=== PATIENT | male | born 1945 | race Caucasian/White ===

== ENCOUNTER 2020-01-05 16:50 | Inpatient (IN) | payer MEDICARE, BC ==
[2020-01-05] MEDS ORDERED: Sodium Chloride 0.9% 10 ML Syringe FLUSH PRN (18:03)
--- NOTE | 2020-01-05 18:09 | EDM.PDOC ---
ED HPI GENERAL MEDICAL PROBLEM - General Chief Complaint: Respiratory Problem Stated Complaint: PENDING COVID LOW O2 Time Seen by Provider: 01/05/20 17:37 Source of Information: Reports: Patient, RN Notes Reviewed History Limitations: Reports: No Limitations - History of Present Illness INITIAL COMMENTS - FREE TEXT/NARRATIVE: Patient is a 74-year-old male who presents to the ED for the evaluation of his ongoing Covid-like symptoms. Patient notes he has been sick since last week 12/29/2019. He notes that he had low oxygen saturations at home 85 to 89% on room air with no activity. O2 sats during his time here has been in the upper 80s to low 90s, roughly 88 to 91% on room air. He does have at times O2 sats of 93% when he is at rest. He was tested for COVID-19 on , but has not received his results yet. He states that his did had Covid a few weeks ago, roughly 3 weeks ago. 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 He is not complaining of fevers, but he is complaining of chills, no cough, no nausea or vomiting or diarrhea, but he has had no appetite. He states that he gets short of breath with very little exertion. - Related Data Allergies Allergy/AdvReac Type Severity Reaction Status Date / Time penicillin G Allergy Difficulty Verified 01/05/20 17:26 Breathing Home Meds: Home Meds Carbidopa/Levodopa [Carbidopa-Levodopa 25-100] 1 tab PO DAILY 03/20/14 [History] Esomeprazole Magnesium [Nexium] 1 cap PO DAILY 03/20/14 [History] Hydrocodone/Acetaminophen [Hydrocodone-Acetamin 10-325 mg] 1 - 2 tab PO Q6H PRN 03/20/14 [History] Pregabalin [Lyrica] 1 cap PO QID 03/20/14 [History] Tamsulosin HCl 1 cap PO DAILY 03/20/14 [History] Timolol Maleate 1 drop EYEBOTH BID 03/20/14 [History] Past Medical History - Past Surgical History Neurological Surgical History: Reports: C-Spine, Other (See Below) Other Neurological Surgeries/Procedures: tail bone removed Musculoskeletal Surgical History: Reports: Knee Replacement, Shoulder Replacement, Other (See Below) Other Musculoskeletal Surgeries/Procedures:: ankle replacement, multiple broken bones Social & Family History - Tobacco Use Tobacco Use Status *Q: Former Tobacco User Used Tobacco, but Quit: Yes Month/Year Tobacco Last Used: 1999 - Caffeine Use Caffeine Use: Reports: Coffee - Recreational Drug Use Recreational Drug Use: No ED ROS GENERAL - Review of Systems Review Of Systems: Comprehensive ROS is negative, except as noted in HPI. ED EXAM, GENERAL - Physical Exam Exam: See Below Exam Limited By: No Limitations General Appearance: Alert, WD/WN, No Apparent Distress Respiratory/Chest: No Respiratory Distress, Lungs Clear, Normal Breath Sounds, No Accessory Muscle Use, Chest Non-Tender Cardiovascular: Normal Peripheral Pulses, Regular Rate, Rhythm, No Edema, No Murmur Peripheral Pulses: 2+: Radial (L), Radial (R) Extremities: Normal Inspection, Normal Capillary Refill Neurological: Alert, Oriented, Normal Cognition, No Motor/Sensory Deficits Psychiatric: Normal Affect, Normal Mood Skin Exam: Warm, Dry, Intact, Normal Color, No Rash #1 Interpretation EKG Date: 01/05/20 Time: 18:19 Rhythm: NSR Rate (Beats/Min): 56 [place]: LAD-Left [place] Deviation (-26 ) P-Wave: Present QRS: Normal ST-T: Normal QT: Normal EKG Interpretation Comments: No obvious ischemia or acute ST changes noted, reviewed by myself and Dr. Thompson. Course - Vital Signs Last Recorded V/S: Last Vital Signs Temp 98.8 F 01/05/20 17:21 Pulse 68 01/05/20 17:21 Resp 18 01/05/20 17:21 BP 158/87 H 01/05/20 17:21 Pulse Ox 93 L 01/05/20 17:21 - Orders/Labs/Meds Orders: Active Orders 24 hr Category Date Time Status EKG Documentation Completion [RC] STAT Care 01/05/20 18:03 Ordered Oxygen Therapy, ED [RC] ASDIRECTED Care 01/05/20 20:38 Ordered Peripheral IV Care [RC] . DIRECTED Care 01/05/20 18:03 Ordered Chest 1V Frontal [CR] Stat Exams 01/05/20 18:02 Ordered CULTURE BLOOD [BC] Stat Lab 01/05/20 18:03 Ordered CULTURE BLOOD [BC] Stat Lab 01/05/20 18:03 Ordered Sodium Chloride 0.9% [Saline Flush] Med 01/05/20 18:03 Ordered 10 ml FLUSH ASDIRECTED PRN Blood Culture x2 Reflex Set [OM.PC] Stat Oth 01/05/20 18:03 Ordered Isolation [COMM] Routine Oth 01/05/20 18:03 Ordered Peripheral IV Insertion Adult [OM.PC] Routine Oth 01/05/20 18:03 Ordered Medication Orders Sodium Chloride (Saline Flush) 10 ml FLUSH ASDIRECTED PRN PRN Reason: Keep Vein Open Last Admin: 01/05/20 18:22 Dose: 10 ml Documented by: NIKKI Labs: Laboratory Tests 01/05/20 01/05/20 01/05/20 Range/Units 18:20 18:30 18:30 WBC 4.51 (4.23-9.07) K/mm3 RBC 5.18 (4.63-6.08) M/mm3 Hgb 15.2 (13.7-17.5) gm/dl Hct 46.0 (40.1-51.0) % MCV 88.8 (79.0-92.2) fl MCH 29.3 (25.7-32.2) pg MCHC 33.0 (32.2-35.5) g/dl RDW Std Deviation 48.1 H (35.1-43.9) fL Plt Count 200 (163-337) K/mm3 MPV 9.8 (9.4-12.3) fl Neutrophils % (Manual) 81 H (40-60) % Band Neutrophils % 2 (0-10) % Lymphocytes % (Manual) 14 L (20-40) % Atypical Lymphs % 0 % Monocytes % (Manual) 3 (2-10) % Eosinophils % (Manual) 0 L (0.8-7.0) % Basophils % (Manual) 0 L (0.2-1.2) Platelet Estimate Adequate RBC Morph Comment Normal PT (9.7-12.0) SECONDS INR APTT (21.7-31.4) SECONDS D-Dimer, Quantitative (0.19-0.50) mg/L Puncture Site Rt radial ABG pH 7.49 H (7.35-7.45) ABG pCO2 25.8 L (35.0-45.0) mmHg ABG pO2 60.0 L (80.0-100.0) mmHg ABG HCO3 19.3 L (22.0-26.0) meq/L ABG O2 Saturation 91.5 L (96.0-97.0) % ABG Base Excess -2.2 L (-2-2.0) Tai Test Positive A-a Gradient 57 mmHg O2 Delivery Device Room air Oxygen Flow Rate 0.0 FiO2 21.00 (21.00-100.00) % Sodium (136-145) mEq/L Potassium (3.5-5.1) mEq/L Chloride (98-107) mEq/L Carbon Dioxide (21-32) mEq/L Anion Gap (5-15) BUN (7-18) mg/dL Creatinine (0.7-1.3) mg/dL Est Cr Clr Drug Dosing mL/min Estimated GFR (MDRD) (>60) mL/min BUN/Creatinine Ratio (14-18) Glucose (83-115) mg/dL Lactic Acid (0.4-2.0) mmol/L Calcium (8.5-10.1) mg/dL Magnesium (1.8-2.4) mg/dl Ferritin (26-388) ng/ml Total Bilirubin (0.2-1.0) mg/dL AST (15-37) U/L ALT (16-63) U/L Alkaline Phosphatase (46-116) U/L Lactate Dehydrogenase (85-227) U/L Troponin I (0.00-0.056) ng/mL C-Reactive Protein 7.9 H* (<1.0) mg/dL NT-Pro-B Natriuret Pep (0-450) pg/mL Total Protein (6.4-8.2) g/dl Albumin (3.4-5.0) g/dl Globulin gm/dL Albumin/Globulin Ratio (1-2) SARS-CoV-2 RNA (ANNIE) (NEGATIVE) 01/05/20 01/05/20 01/05/20 Range/Units 18:30 18:30 18:30 WBC (4.23-9.07) K/mm3 RBC (4.63-6.08) M/mm3 Hgb (13.7-17.5) gm/dl Hct (40.1-51.0) % MCV (79.0-92.2) fl MCH (25.7-32.2) pg MCHC (32.2-35.5) g/dl RDW Std Deviation (35.1-43.9) fL Plt Count (163-337) K/mm3 MPV (9.4-12.3) fl Neutrophils % (Manual) (40-60) % Band Neutrophils % (0-10) % Lymphocytes % (Manual) (20-40) % Atypical Lymphs % % Monocytes % (Manual) (2-10) % Eosinophils % (Manual) (0.8-7.0) % Basophils % (Manual) (0.2-1.2) Platelet Estimate RBC Morph Comment PT 10.7 (9.7-12.0) SECONDS INR 1.00 APTT 30.3 (21.7-31.4) SECONDS D-Dimer, Quantitative 0.36 (0.19-0.50) mg/L Puncture Site ABG pH (7.35-7.45) ABG pCO2 (35.0-45.0) mmHg ABG pO2 (80.0-100.0) mmHg ABG HCO3 (22.0-26.0) meq/L ABG O2 Saturation (96.0-97.0) % ABG Base Excess (-2-2.0) Tai Test A-a Gradient mmHg O2 Delivery Device Oxygen Flow Rate FiO2 (21.00-100.00) % Sodium 137 (136-145) mEq/L Potassium 4.0 (3.5-5.1) mEq/L Chloride 102 (98-107) mEq/L Carbon Dioxide 22 (21-32) mEq/L Anion Gap 17.0 H (5-15) BUN 26 H (7-18) mg/dL Creatinine 1.4 H (0.7-1.3) mg/dL Est Cr Clr Drug Dosing 55.11 mL/min Estimated GFR (MDRD) 49 (>60) mL/min BUN/Creatinine Ratio 18.6 H (14-18) Glucose 105 (83-115) mg/dL Lactic Acid (0.4-2.0) mmol/L Calcium 8.4 L (8.5-10.1) mg/dL Magnesium 2.1 (1.8-2.4) mg/dl Ferritin (26-388) ng/ml Total Bilirubin 0.6 (0.2-1.0) mg/dL AST 21 (15-37) U/L ALT 22 (16-63) U/L Alkaline Phosphatase 51 (46-116) U/L Lactate Dehydrogenase 258 H (85-227) U/L Troponin I < 0.017 (0.00-0.056) ng/mL C-Reactive Protein (<1.0) mg/dL NT-Pro-B Natriuret Pep 203 (0-450) pg/mL Total Protein 7.6 (6.4-8.2) g/dl Albumin 3.5 (3.4-5.0) g/dl Globulin 4.1 gm/dL Albumin/Globulin Ratio 0.9 L (1-2) SARS-CoV-2 RNA (ANNIE) (NEGATIVE) 01/05/20 01/05/20 01/05/20 Range/Units 18:30 18:30 19:21 WBC (4.23-9.07) K/mm3 RBC (4.63-6.08) M/mm3 Hgb (13.7-17.5) gm/dl Hct (40.1-51.0) % MCV (79.0-92.2) fl MCH (25.7-32.2) pg MCHC (32.2-35.5) g/dl RDW Std Deviation (35.1-43.9) fL Plt Count (163-337) K/mm3 MPV (9.4-12.3) fl Neutrophils % (Manual) (40-60) % Band Neutrophils % (0-10) % Lymphocytes % (Manual) (20-40) % Atypical Lymphs % % Monocytes % (Manual) (2-10) % Eosinophils % (Manual) (0.8-7.0) % Basophils % (Manual) (0.2-1.2) Platelet Estimate RBC Morph Comment PT (9.7-12.0) SECONDS INR APTT (21.7-31.4) SECONDS D-Dimer, Quantitative (0.19-0.50) mg/L Puncture Site ABG pH (7.35-7.45) ABG pCO2 (35.0-45.0) mmHg ABG pO2 (80.0-100.0) mmHg ABG HCO3 (22.0-26.0) meq/L ABG O2 Saturation (96.0-97.0) % ABG Base Excess (-2-2.0) Tai Test A-a Gradient mmHg O2 Delivery Device Oxygen Flow Rate FiO2 (21.00-100.00) % Sodium (136-145) mEq/L Potassium (3.5-5.1) mEq/L Chloride (98-107) mEq/L Carbon Dioxide (21-32) mEq/L Anion Gap (5-15) BUN (7-18) mg/dL Creatinine (0.7-1.3) mg/dL Est Cr Clr Drug Dosing mL/min Estimated GFR (MDRD) (>60) mL/min BUN/Creatinine Ratio (14-18) Glucose (83-115) mg/dL Lactic Acid 1.2 (0.4-2.0) mmol/L Calcium (8.5-10.1) mg/dL Magnesium (1.8-2.4) mg/dl Ferritin 699 H (26-388) ng/ml Total Bilirubin (0.2-1.0) mg/dL AST (15-37) U/L ALT (16-63) U/L Alkaline Phosphatase (46-116) U/L Lactate Dehydrogenase (85-227) U/L Troponin I (0.00-0.056) ng/mL C-Reactive Protein (<1.0) mg/dL NT-Pro-B Natriuret Pep (0-450) pg/mL Total Protein (6.4-8.2) g/dl Albumin (3.4-5.0) g/dl Globulin gm/dL Albumin/Globulin Ratio (1-2) SARS-CoV-2 RNA (ANNIE) Positive H (NEGATIVE) Meds: Medications Generic Name Dose Route Start Last Admin Trade Name Freq PRN Reason Stop Dose Admin Sodium Chloride 10 ml 01/05/20 18:03 01/05/20 18:22 Saline Flush FLUSH 10 ml ASDIRECTED PRN Administration Keep Vein Open - Re-Assessments/Exams Free Text/Narrative Re-Assessment/Exam: 01/05/20 18:27 Patient presents to the ED for the evaluation of his ongoing COVID-19 symptoms. Have ordered multitude of labs, Covid testing, chest x-ray and EKG for further evaluation. Due to the patient's low O2 sats at rest I do believe he would benefit from hospitalization at this time. 01/05/20 19:25 The patient's labs have started to result, white blood cell count is 4.51, manual differential shows 81% neutrophils and 2 bands counted. D-dimer is within normal limits at 0.36, his blood gas does demonstrate a PO2 of 60 on room air. Lactic acid is within normal limits at 1.2. The rest of his labs are still pending at this time. The chest x-ray has been read, as possible peripheral pneumonitis or artifact. 01/05/20 20:41 The patient is COVID positive. Dr. Andrew does accept for admission. Departure - Departure Time of Disposition: 20:47 Disposition: Home, Self-Care 01 Condition: Good Clinical Impression: COVID-19, Hypoxia - Discharge Information Forms: ED Department Discharge Sepsis Event Note (ED) - Evaluation Sepsis Screening Result: No Definite Risk - Focused Exam Vital Signs: Vital Signs Temp Pulse Resp BP Pulse Ox 01/05/20 17:21 98.8 F 68 18 158/87 H 93 L - My Orders Last 24 Hours: My Active Orders 01/05/20 18:02 Chest 1V Frontal [CR] Stat 01/05/20 18:03 EKG Documentation Completion [RC] STAT Peripheral IV Care [RC] . DIRECTED CULTURE BLOOD [BC] Stat CULTURE BLOOD [BC] Stat Sodium Chloride 0.9% [Saline Flush] 10 ml FLUSH ASDIRECTED PRN Blood Culture x2 Reflex Set [OM.PC] Stat Isolation [COMM] Routine Peripheral IV Insertion Adult [OM.PC] Routine 01/05/20 20:38 Oxygen Therapy, ED [RC] ASDIRECTED - Assessment/Plan Last 24 Hours: My Active Orders 01/05/20 18:02 Chest 1V Frontal [CR] Stat 01/05/20 18:03 EKG Documentation Completion [RC] STAT Peripheral IV Care [RC] . DIRECTED CULTURE BLOOD [BC] Stat CULTURE BLOOD [BC] Stat Sodium Chloride 0.9% [Saline Flush] 10 ml FLUSH ASDIRECTED PRN Blood Culture x2 Reflex Set [OM.PC] Stat Isolation [COMM] Routine Peripheral IV Insertion Adult [OM.PC] Routine 01/05/20 20:38 Oxygen Therapy, ED [RC] ASDIRECTED
[2020-01-05] MEDS ORDERED: Ondansetron 4 MG/2 ML SDV IV PRN (22:41)
--- NOTE | 2020-01-05 22:51 | PCM.HP.2 ---
H&P History of Present Illness - General Date of Service: 01/05/20 Admit Problem/Dx: Admission Diagnosis/Problem Admission Diagnosis/Problem Hypoxia - History of Present Illness Initial Comments - Free Text/Narative: 74-year-old male with history of hypertension presents to the emergency department with chills and shortness of breath on exertion. Patient started getting sick on 12/29/2019 and had Covid testing at the clinic on , 01/03/2020. His did have COVID-19 approximately 3 weeks ago. At the clinic patient was placed on dexamethasone and amoxicillin. He has a severe allergy to penicillin. At home his oxygen saturations today were between 85 and 89% and in the emergency department he was between 88 and 91% on room air. Denies any cough. He does not have any abdominal symptoms including nausea, vomiting, abdominal pain, or diarrhea. He does not have any appetite. Patient is a former smoker who quit in 1999. In the emergency department he had a normal white count at 7.51 with C-reactive protein of 7.9 and a D-dimer of 0.36. Blood gas demonstrated a pH of 7.49, PCO2 25.8, and PO2 of 60.0. Bicarb 19.3. This was on room air. He does show some renal insufficiency with an estimated GFR of 49 and a creatinine of 1.4. headache Pain Score (Numeric/FACES): 8 - Related Data Allergies/Adverse Reactions: Allergies Allergy/AdvReac Type Severity Reaction Status Date / Time penicillin G Allergy Difficulty Verified 01/05/20 22:21 Breathing Home Medications: Home Meds Aspirin [Adult Low Dose Aspirin EC] 81 mg PO DAILY 01/05/20 [History] Azithromycin [Zithromax] 250 mg PO DAILY 01/05/20 [History] Latanoprost [Xalatan 0.005% Ophth Soln] 1 drop EYEBOTH DAILY 01/05/20 [History] Losartan [Cozaar] 50 mg PO DAILY 01/05/20 [History] Montelukast [Singulair] 10 mg PO DAILY 01/05/20 [History] Pregabalin [Lyrica] 100 mg PO ASDIRECTED 01/05/20 [History] Tamsulosin HCl 0.4 mg PO DAILY 01/05/20 [History] amLODIPine Besylate [Amlodipine Besylate] 10 mg PO DAILY 01/05/20 [History] dexAMETHasone [Dexamethasone] 2 mg PO BEDTIME 01/05/20 [History] dexAMETHasone [Dexamethasone] 4 mg PO DAILY 01/05/20 [History] Past Medical History HEENT History: Reports: Cataract, Hard of Hearing, Other (See Below) Other HEENT History: Wears glasses, [employer] [place] with no aides, full upper denture and lower partial. Respiratory History: Reports: Sleep Apnea Other Respiratory History: wears cpap at home Musculoskeletal History: Reports: Arthritis, Back Pain, Chronic Other Musculoskeletal History: Broke back and neck. L1, L2 and L3 crushed 3 and 4 between shoulder blades and T1 smashed. Tailbone was removed. Neurological History: Reports: Concussion - Infectious Disease History Infectious Disease History: Reports: Influenza, Measles, Novel Coronavirus - Past Surgical History HEENT Surgical History: Reports: Cataract Surgery Respiratory Surgical History: Reports: None Neurological Surgical History: Reports: C-Spine, Other (See Below) Other Neurological Surgeries/Procedures: tail bone removed Musculoskeletal Surgical History: Reports: Knee Replacement, Shoulder Replacement, Other (See Below) Other Musculoskeletal Surgeries/Procedures:: ankle replacement, multiple broken bones Social & Family History - Family History Family Medical History: No Pertinent Family History - Tobacco Use Tobacco Use Status *Q: Former Tobacco User Used Tobacco, but Quit: Yes Month/Year Tobacco Last Used: 1999 - Caffeine Use Caffeine Use: Reports: Coffee - Recreational Drug Use Recreational Drug Use: No H&P Review of Systems - Review of Systems: Review Of Systems: Comprehensive ROS is negative, except as noted in HPI. Exam - Exam Exam: See Below - Vital Signs Vital Signs: Last Vital Signs Temp 98.8 F 01/05/20 17:21 Pulse 68 01/05/20 17:21 Resp 18 01/05/20 17:21 BP 158/87 H 01/05/20 17:21 Pulse Ox 91 L 01/05/20 21:12 Weight: 238 lb - Exam Quality Assessment: Supplemental Oxygen General: Alert, Oriented, 4 HEENT: Conjunctiva Clear, Hearing Intact, Mucosa Moist & [employer], Normal Nasal Septum Neck: Supple, Trachea Midline, 2 Lungs: Normal Respiratory Effort, Rales (Bibasilar) Cardiovascular: Regular Rate, Regular Rhythm GI/Abdominal Exam: Normal Bowel Sounds, Soft, Non-Tender, No Organomegaly, No Distention, No Abnormal Bruit, No Mass Extremities: Normal Inspection, Normal Range of Motion, Non-Tender, No Pedal Edema, Normal Capillary Refill Peripheral Pulses: 2+: Posterior Tibial (L), Posterior Tibial (R), Dorsalis Pedis (L), Dorsalis Pedis (R) Skin: Warm, Dry, Intact Neuro Extensive - Motor, Sensory, Reflexes: CN II-XII Intact Psychiatric: Alert, Normal Affect, Normal Mood - Patient Data Lab Results Last 24 hrs: Laboratory Results - last 24 hr 01/05/20 01/05/20 01/05/20 Range/Units 18:20 18:30 18:30 WBC 4.51 (4.23-9.07) K/mm3 RBC 5.18 (4.63-6.08) M/mm3 Hgb 15.2 (13.7-17.5) gm/dl Hct 46.0 (40.1-51.0) % MCV 88.8 (79.0-92.2) fl MCH 29.3 (25.7-32.2) pg MCHC 33.0 (32.2-35.5) g/dl RDW Std Deviation 48.1 H (35.1-43.9) fL Plt Count 200 (163-337) K/mm3 MPV 9.8 (9.4-12.3) fl Neutrophils % (Manual) 81 H (40-60) % Band Neutrophils % 2 (0-10) % Lymphocytes % (Manual) 14 L (20-40) % Atypical Lymphs % 0 % Monocytes % (Manual) 3 (2-10) % Eosinophils % (Manual) 0 L (0.8-7.0) % Basophils % (Manual) 0 L (0.2-1.2) Platelet Estimate Adequate RBC Morph Comment Normal PT (9.7-12.0) SECONDS INR APTT (21.7-31.4) SECONDS D-Dimer, Quantitative (0.19-0.50) mg/L Puncture Site Rt radial ABG pH 7.49 H (7.35-7.45) ABG pCO2 25.8 L (35.0-45.0) mmHg ABG pO2 60.0 L (80.0-100.0) mmHg ABG HCO3 19.3 L (22.0-26.0) meq/L ABG O2 Saturation 91.5 L (96.0-97.0) % ABG Base Excess -2.2 L (-2-2.0) Tai Test Positive A-a Gradient 57 mmHg O2 Delivery Device Room air Oxygen Flow Rate 0.0 FiO2 21.00 (21.00-100.00) % Sodium (136-145) mEq/L Potassium (3.5-5.1) mEq/L Chloride (98-107) mEq/L Carbon Dioxide (21-32) mEq/L Anion Gap (5-15) BUN (7-18) mg/dL Creatinine (0.7-1.3) mg/dL Est Cr Clr Drug Dosing mL/min Estimated GFR (MDRD) (>60) mL/min BUN/Creatinine Ratio (14-18) Glucose (83-115) mg/dL Lactic Acid (0.4-2.0) mmol/L Calcium (8.5-10.1) mg/dL Magnesium (1.8-2.4) mg/dl Ferritin (26-388) ng/ml Total Bilirubin (0.2-1.0) mg/dL AST (15-37) U/L ALT (16-63) U/L Alkaline Phosphatase (46-116) U/L Lactate Dehydrogenase (85-227) U/L Troponin I (0.00-0.056) ng/mL C-Reactive Protein 7.9 H* (<1.0) mg/dL NT-Pro-B Natriuret Pep (0-450) pg/mL Total Protein (6.4-8.2) g/dl Albumin (3.4-5.0) g/dl Globulin gm/dL Albumin/Globulin Ratio (1-2) SARS-CoV-2 RNA (ANNIE) (NEGATIVE) 01/05/20 01/05/20 01/05/20 Range/Units 18:30 18:30 18:30 WBC (4.23-9.07) K/mm3 RBC (4.63-6.08) M/mm3 Hgb (13.7-17.5) gm/dl Hct (40.1-51.0) % MCV (79.0-92.2) fl MCH (25.7-32.2) pg MCHC (32.2-35.5) g/dl RDW Std Deviation (35.1-43.9) fL Plt Count (163-337) K/mm3 MPV (9.4-12.3) fl Neutrophils % (Manual) (40-60) % Band Neutrophils % (0-10) % Lymphocytes % (Manual) (20-40) % Atypical Lymphs % % Monocytes % (Manual) (2-10) % Eosinophils % (Manual) (0.8-7.0) % Basophils % (Manual) (0.2-1.2) Platelet Estimate RBC Morph Comment PT 10.7 (9.7-12.0) SECONDS INR 1.00 APTT 30.3 (21.7-31.4) SECONDS D-Dimer, Quantitative 0.36 (0.19-0.50) mg/L Puncture Site ABG pH (7.35-7.45) ABG pCO2 (35.0-45.0) mmHg ABG pO2 (80.0-100.0) mmHg ABG HCO3 (22.0-26.0) meq/L ABG O2 Saturation (96.0-97.0) % ABG Base Excess (-2-2.0) Tai Test A-a Gradient mmHg O2 Delivery Device Oxygen Flow Rate FiO2 (21.00-100.00) % Sodium 137 (136-145) mEq/L Potassium 4.0 (3.5-5.1) mEq/L Chloride 102 (98-107) mEq/L Carbon Dioxide 22 (21-32) mEq/L Anion Gap 17.0 H (5-15) BUN 26 H (7-18) mg/dL Creatinine 1.4 H (0.7-1.3) mg/dL Est Cr Clr Drug Dosing 55.11 mL/min Estimated GFR (MDRD) 49 (>60) mL/min BUN/Creatinine Ratio 18.6 H (14-18) Glucose 105 (83-115) mg/dL Lactic Acid (0.4-2.0) mmol/L Calcium 8.4 L (8.5-10.1) mg/dL Magnesium 2.1 (1.8-2.4) mg/dl Ferritin (26-388) ng/ml Total Bilirubin 0.6 (0.2-1.0) mg/dL AST 21 (15-37) U/L ALT 22 (16-63) U/L Alkaline Phosphatase 51 (46-116) U/L Lactate Dehydrogenase 258 H (85-227) U/L Troponin I < 0.017 (0.00-0.056) ng/mL C-Reactive Protein (<1.0) mg/dL NT-Pro-B Natriuret Pep 203 (0-450) pg/mL Total Protein 7.6 (6.4-8.2) g/dl Albumin 3.5 (3.4-5.0) g/dl Globulin 4.1 gm/dL Albumin/Globulin Ratio 0.9 L (1-2) SARS-CoV-2 RNA (ANNIE) (NEGATIVE) 01/05/20 01/05/20 01/05/20 Range/Units 18:30 18:30 19:21 WBC (4.23-9.07) K/mm3 RBC (4.63-6.08) M/mm3 Hgb (13.7-17.5) gm/dl Hct (40.1-51.0) % MCV (79.0-92.2) fl MCH (25.7-32.2) pg MCHC (32.2-35.5) g/dl RDW Std Deviation (35.1-43.9) fL Plt Count (163-337) K/mm3 MPV (9.4-12.3) fl Neutrophils % (Manual) (40-60) % Band Neutrophils % (0-10) % Lymphocytes % (Manual) (20-40) % Atypical Lymphs % % Monocytes % (Manual) (2-10) % Eosinophils % (Manual) (0.8-7.0) % Basophils % (Manual) (0.2-1.2) Platelet Estimate RBC Morph Comment PT (9.7-12.0) SECONDS INR APTT (21.7-31.4) SECONDS D-Dimer, Quantitative (0.19-0.50) mg/L Puncture Site ABG pH (7.35-7.45) ABG pCO2 (35.0-45.0) mmHg ABG pO2 (80.0-100.0) mmHg ABG HCO3 (22.0-26.0) meq/L ABG O2 Saturation (96.0-97.0) % ABG Base Excess (-2-2.0) Tai Test A-a Gradient mmHg O2 Delivery Device Oxygen Flow Rate FiO2 (21.00-100.00) % Sodium (136-145) mEq/L Potassium (3.5-5.1) mEq/L Chloride (98-107) mEq/L Carbon Dioxide (21-32) mEq/L Anion Gap (5-15) BUN (7-18) mg/dL Creatinine (0.7-1.3) mg/dL Est Cr Clr Drug Dosing mL/min Estimated GFR (MDRD) (>60) mL/min BUN/Creatinine Ratio (14-18) Glucose (83-115) mg/dL Lactic Acid 1.2 (0.4-2.0) mmol/L Calcium (8.5-10.1) mg/dL Magnesium (1.8-2.4) mg/dl Ferritin 699 H (26-388) ng/ml Total Bilirubin (0.2-1.0) mg/dL AST (15-37) U/L ALT (16-63) U/L Alkaline Phosphatase (46-116) U/L Lactate Dehydrogenase (85-227) U/L Troponin I (0.00-0.056) ng/mL C-Reactive Protein (<1.0) mg/dL NT-Pro-B Natriuret Pep (0-450) pg/mL Total Protein (6.4-8.2) g/dl Albumin (3.4-5.0) g/dl Globulin gm/dL Albumin/Globulin Ratio (1-2) SARS-CoV-2 RNA (ANNIE) Positive H (NEGATIVE) Result Diagrams: 01/05/20 18:30 01/05/20 18:30 Sam Results Last 24 hrs: Microbiology 01/05/20 19:21 Influenza Type A Antigen Screen - Final Nasopharyngeal Swab NEGATIVE INFLUENZA A VIRUS AG REFERENCE RANGE: NEGATIVE Influenza Type B Antigen Screen - Final NEGATIVE INFLUENZA B VIRUS AG REFERENCE RANGE: NEGATIVE Imaging Impressions Last 24 hrs: Chest x-ray possible peripheral pneumonitis Sepsis Event Note - Evaluation Sepsis Screening Result: No Definite Risk - Focused Exam Vital Signs: Vital Signs Temp Pulse Resp BP Pulse Ox Pulse Ox 01/05/20 21:12 91 L 01/05/20 17:21 98.8 F 68 18 158/87 H 93 L - Problem List (1) Hypertension SNOMED Code(s): 86991806 ICD Code: I10 - ESSENTIAL (PRIMARY) HYPERTENSION Status: Acute Current Visit: Yes (2) COVID-19 SNOMED Code(s): 310078516 ICD Code: U07.1 - COVID-19 Status: Acute Current Visit: Yes (3) Hypoxia SNOMED Code(s): 236912155 ICD Code: R09.02 - HYPOXEMIA Status: Acute Current Visit: Yes Problem List Initiated/Reviewed/Updated: Yes Orders Last 24hrs: Active Orders 24 hr Category Date Time Status Admission Status [Patient Status] [ADT] Routine ADT 01/05/20 20:44 Active EKG Documentation Completion [RC] STAT Care 01/05/20 18:03 Active Oxygen Therapy [RC] PRN Care 01/05/20 22:42 Ordered Oxygen Therapy, ED [RC] ASDIRECTED Care 01/05/20 20:38 Active Peripheral IV Care [RC] . DIRECTED Care 01/05/20 18:03 Active Up ad [place] [RC] ASDIRECTED Care 01/05/20 22:41 Ordered VTE/DVT Education [RC] PER UNIT ROUTINE Care 01/05/20 22:42 Ordered Vital Signs [RC] Q4H Care 01/05/20 22:42 Ordered Regular Diet [DIET] Diet 01/06/20 Breakfast Ordered Chest 1V Frontal [CR] Stat Exams 01/05/20 18:02 Taken CULTURE BLOOD [BC] Stat Lab 01/05/20 18:30 Received CULTURE BLOOD [BC] Stat Lab 01/05/20 18:50 Received Acetaminophen [TylenoL] Med 01/05/20 22:41 Ordered 650 mg PO Q4H PRN Aspirin [Halfprin] Med 01/06/20 09:00 Ordered 81 mg PO DAILY Azithromycin Med 01/06/20 09:00 Ordered 250 mg PO DAILY Enoxaparin [Lovenox] Med 01/06/20 09:00 Ordered 40 mg SUBCUT DAILY Latanoprost [Xalatan 0.005% Ophth Soln] Med 01/05/20 23:00 Ordered 1 drop EYEBOTH DAILY Montelukast [Singulair] Med 01/06/20 09:00 Ordered 10 mg PO DAILY Ondansetron [Zofran] Med 01/05/20 22:41 Ordered 4 mg IV Q4H PRN Pregabalin Med 01/05/20 22:45 Ordered 100 mg PO ASDIRECTED Remdesivir (Eua) [Remdesivir (EUA)] 100 mg Med 01/06/20 22:45 Ordered Sodium Chloride 0.9% [Normal Saline] 100 ml IV Q24H Remdesivir (Eua) [Remdesivir (EUA)] 200 mg Med 01/05/20 22:41 Ordered Sodium Chloride 0.9% [Normal Saline] 250 ml IV ONETIME Sodium Chloride 0.9% [Saline Flush] Med 01/05/20 18:03 Active 10 ml FLUSH ASDIRECTED PRN Tamsulosin [Flomax] Med 01/06/20 09:00 Ordered 0.4 mg PO DAILY amLODIPine [Norvasc] Med 01/06/20 09:00 Ordered 10 mg PO DAILY dexAMETHasone Med 01/06/20 09:00 Ordered 6 mg PO DAILY Blood Culture x2 Reflex Set [OM.PC] Stat Oth 01/05/20 18:03 Ordered Isolation [COMM] Routine Oth 01/05/20 18:03 Ordered Peripheral IV Insertion Adult [OM.PC] Routine Oth 01/05/20 18:03 Ordered Resuscitation Status Routine Resus Stat 01/05/20 22:41 Ordered Medication Orders Acetaminophen (Tylenol) 650 mg PO Q4H PRN PRN Reason: Pain (Mild 1-3)/fever Amlodipine Besylate (Norvasc) 10 mg PO DAILY [facility] Aspirin (Halfprin) 81 mg PO DAILY [facility] Dexamethasone (Dexamethasone) 6 mg PO DAILY [facility] Stop: 01/12/20 09:01 Enoxaparin Sodium (Lovenox) 40 mg SUBCUT DAILY [facility] Remdesivir 200 mg/ Sodium (Chloride) 250 mls @ 250 mls/hr IV ONETIME ONE Stop: 01/05/20 22:42 Remdesivir 100 mg/ Sodium (Chloride) 100 mls @ 100 mls/hr IV Q24H [facility] Stop: 01/09/20 23:44 Latanoprost (Xalatan 0.005% Ophth Soln) ml EYEBOTH DAILY [facility] Montelukast Sodium (Singulair) 10 mg PO DAILY [facility] Non-Formulary Medication (Azithromycin) 250 mg PO DAILY [facility] Stop: 01/07/20 09:01 Non-Formulary Medication (Pregabalin) 100 mg PO ASDIRECTED [facility] Ondansetron HCl (Zofran) 4 mg IV Q4H PRN PRN Reason: Nausea/Vomiting Sodium Chloride (Saline Flush) 10 ml FLUSH ASDIRECTED PRN PRN Reason: Keep Vein Open Last Admin: 01/05/20 18:22 Dose: 10 ml Documented by: NIKKI Tamsulosin HCl (Flomax) 0.4 mg PO DAILY [facility] Assessment/Plan Comment:: Assessment COVID-19 with hypoxemia likely secondary to COVID-19 pneumonia * Chest x-ray has only subtle changes that are likely secondary to COVID-19 Pneumonia * Patient is requiring supplemental FiO2 to keep SPO2 in the low 90s. * He has felt ill since 12/29/2019 * Was started on azithromycin and dexamethasone 2 days ago * had COVID-19 approximately 3 weeks ago * WBC 4.51 with 2% bands and 81% neutrophils, hypoxemia on ABG, C-reactive protein 7.9, D-dimer 0.36 Acute versus chronic renal insufficiency * Estimated GFR 49 with a creatinine of 1.4 and BUN of 26 * Possibly secondary to current illness. Avoid overhydration secondary to worsening oxygenation when fluid overloaded History of hypertension * Blood pressure in the ER 158/87 * On Norvasc at home Plan * Admit to medical floor on continuous pulse ox * Start remdesivir and continue dexamethasone * Finish azithromycin * Hold off on further antibiotic treatment at this time. Patient had a severe r eaction to penicillin G and broad-spectrum antibiotics do not appear necessary at this time. * Continue following renal function closely * FiO2 to keep SPO2 between 88 and 94%. * Consider convalescent plasma if condition worsens. * Continue home meds including amlodipine, aspirin, and Lyrica * VTE prophylaxis with Lovenox * CODE STATUS: Full code - Mortality Measure Prognosis:: Good
[2020-01-05] MEDS ORDERED: REMDESIVIR 200 MG in Sodium Chloride 0.9% 250 ML IV ONE (23:00)
[2020-01-06] MEDS: Latanoprost 0.005% Ophth Soln 2.5 ML Bottle EYEBOTH SCH ×2 (00:02→09:16)
[2020-01-06] MEDS ORDERED: Pregabalin 25 MG Cap PO ONE (00:04)
[2020-01-06] MEDS: Tamsulosin 0.4 MG Cap.ER PO SCH (09:06)
[2020-01-06] MEDS: Dexamethasone 4 MG Tab PO SCH (09:07)
[2020-01-06] MEDS: Azithromycin 250 MG Tab PO SCH (09:07)
[2020-01-06] MEDS: amLODIPine 10 MG Tab PO SCH (09:08)
[2020-01-06] MEDS: Aspirin 81 MG Tab.EC PO SCH (09:13)
[2020-01-06] MEDS: Montelukast 10 MG Tab PO SCH (09:13)
[2020-01-06] MEDS: Acetaminophen 325 MG Tab PO PRN ×2 (09:13)
[2020-01-06] MEDS: Enoxaparin 40 MG/0.4 ML Syringe SUBCUT SCH (09:16)
[2020-01-06] MEDS: Pregabalin 25 MG Cap PO SCH ×4 (10:22→22:39)
[2020-01-06] MEDS ORDERED: Sodium Chloride 0.9% 250 ML IV SCH (13:45)
--- NOTE | 2020-01-06 15:42 | PCM.PN ---
- General Info Date of Service: 01/06/20 Admission Dx/Problem (Free Text): Admission Diagnosis/Problem Admission Diagnosis/Problem Hypoxia Subjective Update: Patient is feeling worse this morning. He states he has had chills and feels feverish. Continues with mild body aches appetite is poor - Review of Systems General: Reports: Fever, Fatigue HEENT: Reports: Headaches Pulmonary: Reports: Shortness of Breath, Cough Cardiovascular: Reports: No Symptoms Gastrointestinal: Reports: Decreased Appetite Neurological: Reports: No Symptoms - Patient Data Vitals - Most Recent: Last Vital Signs Temp 98.0 F 01/06/20 15:35 Pulse 50 L 01/06/20 15:35 Resp 20 01/06/20 15:35 BP 105/64 01/06/20 15:35 Pulse Ox 89 L 01/06/20 15:35 Weight - Most Recent: 238 lb I&O - Last 24 Hours: Intake & Output 01/06/20 01/06/20 01/06/20 06:59 14:59 22:59 Intake Total 750 15 439 Output Total 325 775 Balance 425 15 -336 Lab Results Last 24 Hours: Laboratory Results - last 24 hr 01/05/20 01/05/20 01/05/20 Range/Units 18:20 18:30 18:30 WBC 4.51 (4.23-9.07) K/mm3 RBC 5.18 (4.63-6.08) M/mm3 Hgb 15.2 (13.7-17.5) gm/dl Hct 46.0 (40.1-51.0) % MCV 88.8 (79.0-92.2) fl MCH 29.3 (25.7-32.2) pg MCHC 33.0 (32.2-35.5) g/dl RDW Std Deviation 48.1 H (35.1-43.9) fL Plt Count 200 (163-337) K/mm3 MPV 9.8 (9.4-12.3) fl Neutrophils % (Manual) 81 H (40-60) % Band Neutrophils % 2 (0-10) % Lymphocytes % (Manual) 14 L (20-40) % Atypical Lymphs % 0 % Monocytes % (Manual) 3 (2-10) % Eosinophils % (Manual) 0 L (0.8-7.0) % Basophils % (Manual) 0 L (0.2-1.2) Platelet Estimate Adequate RBC Morph Comment Normal PT (9.7-12.0) SECONDS INR APTT (21.7-31.4) SECONDS D-Dimer, Quantitative (0.19-0.50) mg/L Puncture Site Rt radial ABG pH 7.49 H (7.35-7.45) ABG pCO2 25.8 L (35.0-45.0) mmHg ABG pO2 60.0 L (80.0-100.0) mmHg ABG HCO3 19.3 L (22.0-26.0) meq/L ABG O2 Saturation 91.5 L (96.0-97.0) % ABG Base Excess -2.2 L (-2-2.0) Tai Test Positive A-a Gradient 57 mmHg O2 Delivery Device Room air Oxygen Flow Rate 0.0 FiO2 21.00 (21.00-100.00) % Sodium (136-145) mEq/L Potassium (3.5-5.1) mEq/L Chloride (98-107) mEq/L Carbon Dioxide (21-32) mEq/L Anion Gap (5-15) BUN (7-18) mg/dL Creatinine (0.7-1.3) mg/dL Est Cr Clr Drug Dosing mL/min Estimated GFR (MDRD) (>60) mL/min BUN/Creatinine Ratio (14-18) Glucose (83-115) mg/dL Lactic Acid (0.4-2.0) mmol/L Calcium (8.5-10.1) mg/dL Magnesium (1.8-2.4) mg/dl Ferritin (26-388) ng/ml Total Bilirubin (0.2-1.0) mg/dL AST (15-37) U/L ALT (16-63) U/L Alkaline Phosphatase (46-116) U/L Lactate Dehydrogenase (85-227) U/L Troponin I (0.00-0.056) ng/mL C-Reactive Protein 7.9 H* (<1.0) mg/dL NT-Pro-B Natriuret Pep (0-450) pg/mL Total Protein (6.4-8.2) g/dl Albumin (3.4-5.0) g/dl Globulin gm/dL Albumin/Globulin Ratio (1-2) SARS-CoV-2 RNA (ANNIE) (NEGATIVE) Blood Type 01/05/20 01/05/20 01/05/20 Range/Units 18:30 18:30 18:30 WBC (4.23-9.07) K/mm3 RBC (4.63-6.08) M/mm3 Hgb (13.7-17.5) gm/dl Hct (40.1-51.0) % MCV (79.0-92.2) fl MCH (25.7-32.2) pg MCHC (32.2-35.5) g/dl RDW Std Deviation (35.1-43.9) fL Plt Count (163-337) K/mm3 MPV (9.4-12.3) fl Neutrophils % (Manual) (40-60) % Band Neutrophils % (0-10) % Lymphocytes % (Manual) (20-40) % Atypical Lymphs % % Monocytes % (Manual) (2-10) % Eosinophils % (Manual) (0.8-7.0) % Basophils % (Manual) (0.2-1.2) Platelet Estimate RBC Morph Comment PT 10.7 (9.7-12.0) SECONDS INR 1.00 APTT 30.3 (21.7-31.4) SECONDS D-Dimer, Quantitative 0.36 (0.19-0.50) mg/L Puncture Site ABG pH (7.35-7.45) ABG pCO2 (35.0-45.0) mmHg ABG pO2 (80.0-100.0) mmHg ABG HCO3 (22.0-26.0) meq/L ABG O2 Saturation (96.0-97.0) % ABG Base Excess (-2-2.0) Tai Test A-a Gradient mmHg O2 Delivery Device Oxygen Flow Rate FiO2 (21.00-100.00) % Sodium 137 (136-145) mEq/L Potassium 4.0 (3.5-5.1) mEq/L Chloride 102 (98-107) mEq/L Carbon Dioxide 22 (21-32) mEq/L Anion Gap 17.0 H (5-15) BUN 26 H (7-18) mg/dL Creatinine 1.4 H (0.7-1.3) mg/dL Est Cr Clr Drug Dosing 55.11 mL/min Estimated GFR (MDRD) 49 (>60) mL/min BUN/Creatinine Ratio 18.6 H (14-18) Glucose 105 (83-115) mg/dL Lactic Acid (0.4-2.0) mmol/L Calcium 8.4 L (8.5-10.1) mg/dL Magnesium 2.1 (1.8-2.4) mg/dl Ferritin (26-388) ng/ml Total Bilirubin 0.6 (0.2-1.0) mg/dL AST 21 (15-37) U/L ALT 22 (16-63) U/L Alkaline Phosphatase 51 (46-116) U/L Lactate Dehydrogenase 258 H (85-227) U/L Troponin I < 0.017 (0.00-0.056) ng/mL C-Reactive Protein (<1.0) mg/dL NT-Pro-B Natriuret Pep 203 (0-450) pg/mL Total Protein 7.6 (6.4-8.2) g/dl Albumin 3.5 (3.4-5.0) g/dl Globulin 4.1 gm/dL Albumin/Globulin Ratio 0.9 L (1-2) SARS-CoV-2 RNA (ANNIE) (NEGATIVE) Blood Type 01/05/20 01/05/20 01/05/20 Range/Units 18:30 18:30 19:21 WBC (4.23-9.07) K/mm3 RBC (4.63-6.08) M/mm3 Hgb (13.7-17.5) gm/dl Hct (40.1-51.0) % MCV (79.0-92.2) fl MCH (25.7-32.2) pg MCHC (32.2-35.5) g/dl RDW Std Deviation (35.1-43.9) fL Plt Count (163-337) K/mm3 MPV (9.4-12.3) fl Neutrophils % (Manual) (40-60) % Band Neutrophils % (0-10) % Lymphocytes % (Manual) (20-40) % Atypical Lymphs % % Monocytes % (Manual) (2-10) % Eosinophils % (Manual) (0.8-7.0) % Basophils % (Manual) (0.2-1.2) Platelet Estimate RBC Morph Comment PT (9.7-12.0) SECONDS INR APTT (21.7-31.4) SECONDS D-Dimer, Quantitative (0.19-0.50) mg/L Puncture Site ABG pH (7.35-7.45) ABG pCO2 (35.0-45.0) mmHg ABG pO2 (80.0-100.0) mmHg ABG HCO3 (22.0-26.0) meq/L ABG O2 Saturation (96.0-97.0) % ABG Base Excess (-2-2.0) Tai Test A-a Gradient mmHg O2 Delivery Device Oxygen Flow Rate FiO2 (21.00-100.00) % Sodium (136-145) mEq/L Potassium (3.5-5.1) mEq/L Chloride (98-107) mEq/L Carbon Dioxide (21-32) mEq/L Anion Gap (5-15) BUN (7-18) mg/dL Creatinine (0.7-1.3) mg/dL Est Cr Clr Drug Dosing mL/min Estimated GFR (MDRD) (>60) mL/min BUN/Creatinine Ratio (14-18) Glucose (83-115) mg/dL Lactic Acid 1.2 (0.4-2.0) mmol/L Calcium (8.5-10.1) mg/dL Magnesium (1.8-2.4) mg/dl Ferritin 699 H (26-388) ng/ml Total Bilirubin (0.2-1.0) mg/dL AST (15-37) U/L ALT (16-63) U/L Alkaline Phosphatase (46-116) U/L Lactate Dehydrogenase (85-227) U/L Troponin I (0.00-0.056) ng/mL C-Reactive Protein (<1.0) mg/dL NT-Pro-B Natriuret Pep (0-450) pg/mL Total Protein (6.4-8.2) g/dl Albumin (3.4-5.0) g/dl Globulin gm/dL Albumin/Globulin Ratio (1-2) SARS-CoV-2 RNA (ANNIE) Positive H (NEGATIVE) Blood Type 01/06/20 Range/Units 10:52 WBC (4.23-9.07) K/mm3 RBC (4.63-6.08) M/mm3 Hgb (13.7-17.5) gm/dl Hct (40.1-51.0) % MCV (79.0-92.2) fl MCH (25.7-32.2) pg MCHC (32.2-35.5) g/dl RDW Std Deviation (35.1-43.9) fL Plt Count (163-337) K/mm3 MPV (9.4-12.3) fl Neutrophils % (Manual) (40-60) % Band Neutrophils % (0-10) % Lymphocytes % (Manual) (20-40) % Atypical Lymphs % % Monocytes % (Manual) (2-10) % Eosinophils % (Manual) (0.8-7.0) % Basophils % (Manual) (0.2-1.2) Platelet Estimate RBC Morph Comment PT (9.7-12.0) SECONDS INR APTT (21.7-31.4) SECONDS D-Dimer, Quantitative (0.19-0.50) mg/L Puncture Site ABG pH (7.35-7.45) ABG pCO2 (35.0-45.0) mmHg ABG pO2 (80.0-100.0) mmHg ABG HCO3 (22.0-26.0) meq/L ABG O2 Saturation (96.0-97.0) % ABG Base Excess (-2-2.0) Tai Test A-a Gradient mmHg O2 Delivery Device Oxygen Flow Rate FiO2 (21.00-100.00) % Sodium (136-145) mEq/L Potassium (3.5-5.1) mEq/L Chloride (98-107) mEq/L Carbon Dioxide (21-32) mEq/L Anion Gap (5-15) BUN (7-18) mg/dL Creatinine (0.7-1.3) mg/dL Est Cr Clr Drug Dosing mL/min Estimated GFR (MDRD) (>60) mL/min BUN/Creatinine Ratio (14-18) Glucose (83-115) mg/dL Lactic Acid (0.4-2.0) mmol/L Calcium (8.5-10.1) mg/dL Magnesium (1.8-2.4) mg/dl Ferritin (26-388) ng/ml Total Bilirubin (0.2-1.0) mg/dL AST (15-37) U/L ALT (16-63) U/L Alkaline Phosphatase (46-116) U/L Lactate Dehydrogenase (85-227) U/L Troponin I (0.00-0.056) ng/mL C-Reactive Protein (<1.0) mg/dL NT-Pro-B Natriuret Pep (0-450) pg/mL Total Protein (6.4-8.2) g/dl Albumin (3.4-5.0) g/dl Globulin gm/dL Albumin/Globulin Ratio (1-2) SARS-CoV-2 RNA (ANNIE) (NEGATIVE) Blood Type O POSITIVE Sam Results Last 24 Hours: Microbiology 01/05/20 19:21 Influenza Type A Antigen Screen - Final Nasopharyngeal Swab NEGATIVE INFLUENZA A VIRUS AG REFERENCE RANGE: NEGATIVE Influenza Type B Antigen Screen - Final NEGATIVE INFLUENZA B VIRUS AG REFERENCE RANGE: NEGATIVE Med Orders - Current: Current Medications Acetaminophen (Tylenol) 650 mg PO Q4H PRN PRN Reason: Pain (Mild 1-3)/fever Last Admin: 01/06/20 09:13 Dose: 650 mg Documented by: Amlodipine Besylate (Norvasc) 10 mg PO DAILY [facility] Last Admin: 01/06/20 09:08 Dose: 10 mg Documented by: Aspirin (Halfprin) 81 mg PO DAILY [facility] Last Admin: 01/06/20 09:13 Dose: 81 mg Documented by: Azithromycin (Zithromax) 250 mg PO DAILY [facility] Stop: 01/07/20 09:01 Last Admin: 01/06/20 09:07 Dose: 250 mg Documented by: Dexamethasone (Dexamethasone) 6 mg PO DAILY [facility] Stop: 01/12/20 09:01 Last Admin: 01/06/20 09:07 Dose: 6 mg Documented by: Enoxaparin Sodium (Lovenox) 40 mg SUBCUT DAILY [facility] Last Admin: 01/06/20 09:16 Dose: 40 mg Documented by: Remdesivir 100 mg/ Sodium (Chloride) 100 mls @ 100 mls/hr IV Q24H [facility] Stop: 01/09/20 21:59 Sodium Chloride (Normal Saline) 250 mls @ 75 mls/hr IV ASDIRECTED [facility] Last Admin: 01/06/20 13:49 Dose: 75 mls/hr Documented by: Latanoprost (Xalatan 0.005% Ophth Soln) 0 ml EYEBOTH DAILY [facility] Last Admin: 01/06/20 09:16 Dose: 1 drop Documented by: Montelukast Sodium (Singulair) 10 mg PO DAILY [facility] Last Admin: 01/06/20 09:13 Dose: Not Given Documented by: Ondansetron HCl (Zofran) 4 mg IV Q4H PRN PRN Reason: Nausea/Vomiting Pregabalin (Lyrica) 100 mg PO QID [facility] Last Admin: 01/06/20 12:38 Dose: 100 mg Documented by: Sodium Chloride (Saline Flush) 10 ml FLUSH ASDIRECTED PRN PRN Reason: Keep Vein Open Last Admin: 01/05/20 18:22 Dose: 10 ml Documented by: Tamsulosin HCl (Flomax) 0.4 mg PO DAILY [facility] Last Admin: 01/06/20 09:06 Dose: 0.4 mg Documented by: Discontinued Medications Remdesivir 200 mg/ Sodium (Chloride) 250 mls @ 250 mls/hr IV ONETIME ONE Stop: 01/05/20 23:59 Last Admin: 01/06/20 00:01 Dose: 250 mls/hr Documented by: Pregabalin (Lyrica) 100 mg PO ONETIME ONE Stop: 01/06/20 00:05 Last Admin: 01/06/20 01:14 Dose: 100 mg Documented by: - Exam Quality Assessment: Supplemental Oxygen General: Alert, Oriented, Mild Distress HEENT: Pupils Equal, Mucous Membr. Moist/[place] Neck: Supple Lungs: Rales (Bibasilar). No: Normal Respiratory Effort (Increased respiratory rate) Cardiovascular: Regular Rhythm, Bradycardia GI/Abdominal Exam: Normal Bowel Sounds, Soft, Non-Tender, No Organomegaly, No Distention, No Abnormal Bruit Extremities: Normal Inspection, Normal Range of Motion, Non-Tender, No Pedal Edema, Normal Capillary Refill Skin: Warm, Dry, Intact Psy/Mental Status: Alert, Normal Affect, Normal Mood Sepsis Event Note - Evaluation Sepsis Screening Result: No Definite Risk - Focused Exam Vital Signs: Vital Signs Temp Pulse Pulse Resp BP BP Pulse Ox 01/06/20 15:35 98.0 F 50 L 20 105/64 89 L 01/06/20 15:15 98.6 F 51 L 20 102/57 L 90 L 01/06/20 14:27 98.6 F 52 L 20 109/60 90 L 01/06/20 14:06 98.6 F 54 L 20 112/69 90 L 01/06/20 12:34 99.5 F 01/06/20 11:00 100.0 F 61 20 120/63 86 L 01/06/20 10:39 99.0 F 66 90 L 01/06/20 09:08 134/89 01/06/20 08:16 98.4 F 78 24 H 134/89 92 L - Problem List & Annotations (1) Hypertension SNOMED Code(s): 00655579 Code(s): I10 - ESSENTIAL (PRIMARY) HYPERTENSION Status: Acute Current Visit: Yes (2) COVID-19 SNOMED Code(s): 233226688 Code(s): U07.1 - COVID-19 Status: Acute Current Visit: Yes (3) Hypoxia SNOMED Code(s): 439628982 Code(s): R09.02 - HYPOXEMIA Status: Acute Current Visit: Yes - Problem List Review Problem List Initiated/Reviewed/Updated: Yes - My Orders Last 24 Hours: My Active Orders 01/05/20 22:41 Up ad [place] [RC] ASDIRECTED Acetaminophen [TylenoL] 650 mg PO Q4H PRN Ondansetron [Zofran] 4 mg IV Q4H PRN Resuscitation Status Routine 01/05/20 22:42 Oxygen Therapy [RC] PRN VTE/DVT Education [RC] PER UNIT ROUTINE Vital Signs [RC] Q4HR 01/05/20 23:00 Latanoprost [Xalatan 0.005% Ophth Soln] 0 ml EYEBOTH DAILY 01/06/20 Breakfast Regular Diet [DIET] 01/06/20 09:00 Aspirin [Halfprin] 81 mg PO DAILY Azithromycin [Zithromax] 250 mg PO DAILY Enoxaparin [Lovenox] 40 mg SUBCUT DAILY Montelukast [Singulair] 10 mg PO DAILY Pregabalin [Lyrica] 100 mg PO QID Tamsulosin [Flomax] 0.4 mg PO DAILY amLODIPine [Norvasc] 10 mg PO DAILY dexAMETHasone 6 mg PO DAILY 01/06/20 10:00 Verify Patient Consent Obtain [RC] ASDIRECTED Transfuse Fresh Frozen Plasma [COMM] Routine 01/06/20 13:45 Sodium Chloride 0.9% [Normal Saline] 250 ml IV ASDIRECTED 01/06/20 21:00 Remdesivir (Eua) [Remdesivir (EUA)] 100 mg Sodium Chloride 0.9% [Normal Saline] 100 ml IV Q24H - Plan Plan:: Assessment COVID-19 with hypoxemia likely secondary to COVID-19 pneumonia * Patient has worsened overnight. He is requiring increasing O2 supplementation. * He has felt ill since 12/29/2019 * Finished azithromycin * Received 1 dose of remdesivir * had COVID-19 approximately 3 weeks ago * WBC 4.51 with 2% bands and 81% neutrophils, hypoxemia on ABG, C-reactive protein 7.9, D-dimer 0.36 Acute versus chronic renal insufficiency * Estimated GFR 49 with a creatinine of 1.4 and BUN of 26 * Possibly secondary to current illness. Avoid overhydration secondary to worsening oxygenation when fluid overloaded History of hypertension * Blood pressure well controlled * On home dose of Norvasc Plan * Continue remdesivir and dexamethasone * Convalescent plasma 2 units ordered * I spoke with Shon to provide information about convalescent plasma. I offered the "fax sheet for patients and parents/caregivers, for COVID-19 convalescent plasma to read and review. I stated that therapy has been approved by an emergency use authorization process and has not fully been FDA reviewed or approved. I shared potential risks from the therapy including transmission of blood borne pathogen such as HIV and hepatitis C, allergic and transfusion related reactions, post transfusion purpura. Additionally theoretical risks include a phenomenon called antibodydependent enhancement of infection such as is seen in dengue or attenuation of an immune response that may make patients more susceptible to reinfection. * Hold off on further antibiotic treatment at this time. Patient had a severe reaction to penicillin G and broad-spectrum antibiotics do not appear necessary at this time. * Continue following renal function closely * FiO2 to keep SPO2 between 88 and 94%. * Continue home meds including amlodipine, aspirin, and Lyrica * VTE prophylaxis with Lovenox * CODE STATUS: Full code
[2020-01-06] MEDS: REMDESIVIR 100 MG in Sodium Chloride 0.9% 100 ML IV SCH (22:39)
[2020-01-07] MEDS: Enoxaparin 40 MG/0.4 ML Syringe SUBCUT SCH (08:42)
[2020-01-07] MEDS: Pregabalin 25 MG Cap PO SCH ×4 (08:43→20:54)
[2020-01-07] MEDS: Azithromycin 250 MG Tab PO SCH (08:43)
[2020-01-07] MEDS: Aspirin 81 MG Tab.EC PO SCH (08:43)
[2020-01-07] MEDS: Tamsulosin 0.4 MG Cap.ER PO SCH (08:44)
[2020-01-07] MEDS: Montelukast 10 MG Tab PO SCH (08:45)
[2020-01-07] MEDS: amLODIPine 10 MG Tab PO SCH (08:46)
[2020-01-07] MEDS: Dexamethasone 4 MG Tab PO SCH (08:46)
[2020-01-07] MEDS: Latanoprost 0.005% Ophth Soln 2.5 ML Bottle EYEBOTH SCH (08:55)
--- NOTE | 2020-01-07 12:40 | PCM.PN ---
- General Info Date of Service: 01/07/20 Admission Dx/Problem (Free Text): Admission Diagnosis/Problem Admission Diagnosis/Problem Hypoxia Subjective Update: Patient reports feeling much better today versus yesterday. Encouraged to be up more independently in the room and ambulating. Functional Status: Reports: Pain Controlled, Tolerating Diet, Ambulating, Urinating, Incentive Spirometry - Review of Systems General: Reports: Fatigue. Denies: Appetite (Fair) HEENT: Reports: Glasses Pulmonary: Reports: Shortness of Breath, Cough. Denies: Sputum Cardiovascular: Reports: No Symptoms Gastrointestinal: Reports: Decreased Appetite. Denies: Diarrhea, Nausea, Vomiting Genitourinary: Reports: No Symptoms Musculoskeletal: Reports: No Symptoms Skin: Reports: No Symptoms Neurological: Reports: No Symptoms Psychiatric: Reports: No Symptoms - Patient Data Vitals - Most Recent: Last Vital Signs Temp 98.1 F 01/07/20 11:57 Pulse 58 L 01/07/20 11:57 Resp 15 01/07/20 11:57 BP 124/68 01/07/20 11:57 Pulse Ox 92 L 01/07/20 11:57 Weight - Most Recent: 238 lb 14.4 oz I&O - Last 24 Hours: Intake & Output 01/06/20 01/07/20 01/07/20 22:59 06:59 14:59 Intake Total 766 400 180 Output Total 775 650 Balance -9 -250 180 Lab Results Last 24 Hours: Laboratory Results - last 24 hr 01/06/20 01/07/20 01/07/20 Range/Units 10:52 05:30 05:30 WBC 3.17 L (4.23-9.07) K/mm3 RBC 5.21 (4.63-6.08) M/mm3 Hgb 15.3 (13.7-17.5) gm/dl Hct 46.1 (40.1-51.0) % MCV 88.5 (79.0-92.2) fl MCH 29.4 (25.7-32.2) pg MCHC 33.2 (32.2-35.5) g/dl RDW Std Deviation 47.2 H (35.1-43.9) fL Plt Count 216 (163-337) K/mm3 MPV 10.0 (9.4-12.3) fl Neut % (Auto) 73.2 H (34.0-67.9) % Lymph % (Auto) 17.7 L (21.8-53.1) % [place] % (Auto) 8.8 (5.3-12.2) % Eos % (Auto) 0 L (0.8-7.0) Baso % (Auto) 0.0 L (0.1-1.2) % Neut # (Auto) 2.32 (1.78-5.38) K/mm3 Lymph # (Auto) 0.56 L (1.32-3.57) K/mm3 [place] # (Auto) 0.28 L (0.30-0.82) K/mm3 Eos # (Auto) 0.00 L (0.04-0.54) K/mm3 Baso # (Auto) 0.00 L (0.01-0.08) K/mm3 D-Dimer, Quantitative 0.49 (0.19-0.50) mg/L Sodium (136-145) mEq/L Potassium (3.5-5.1) mEq/L Chloride (98-107) mEq/L Carbon Dioxide (21-32) mEq/L Anion Gap (5-15) BUN (7-18) mg/dL Creatinine (0.7-1.3) mg/dL Est Cr Clr Drug Dosing mL/min Estimated GFR (MDRD) (>60) mL/min BUN/Creatinine Ratio (14-18) Glucose (83-115) mg/dL Calcium (8.5-10.1) mg/dL Phosphorus (2.6-4.7) mg/dL Magnesium (1.8-2.4) mg/dl Total Bilirubin (0.2-1.0) mg/dL AST (15-37) U/L ALT (16-63) U/L Alkaline Phosphatase (46-116) U/L Troponin I (0.00-0.056) ng/mL C-Reactive Protein (<1.0) mg/dL Total Protein (6.4-8.2) g/dl Albumin (3.4-5.0) g/dl Globulin gm/dL Albumin/Globulin Ratio (1-2) TSH 3rd Generation (0.358-3.74) uIU/mL Blood Type O POSITIVE 01/07/20 Range/Units 05:30 WBC (4.23-9.07) K/mm3 RBC (4.63-6.08) M/mm3 Hgb (13.7-17.5) gm/dl Hct (40.1-51.0) % MCV (79.0-92.2) fl MCH (25.7-32.2) pg MCHC (32.2-35.5) g/dl RDW Std Deviation (35.1-43.9) fL Plt Count (163-337) K/mm3 MPV (9.4-12.3) fl Neut % (Auto) (34.0-67.9) % Lymph % (Auto) (21.8-53.1) % [place] % (Auto) (5.3-12.2) % Eos % (Auto) (0.8-7.0) Baso % (Auto) (0.1-1.2) % Neut # (Auto) (1.78-5.38) K/mm3 Lymph # (Auto) (1.32-3.57) K/mm3 [place] # (Auto) (0.30-0.82) K/mm3 Eos # (Auto) (0.04-0.54) K/mm3 Baso # (Auto) (0.01-0.08) K/mm3 D-Dimer, Quantitative (0.19-0.50) mg/L Sodium 138 (136-145) mEq/L Potassium 4.2 (3.5-5.1) mEq/L Chloride 104 (98-107) mEq/L Carbon Dioxide 23 (21-32) mEq/L Anion Gap 15.2 H (5-15) BUN 27 H (7-18) mg/dL Creatinine 1.2 (0.7-1.3) mg/dL Est Cr Clr Drug Dosing 64.30 mL/min Estimated GFR (MDRD) 59 (>60) mL/min BUN/Creatinine Ratio 22.5 H (14-18) Glucose 112 (83-115) mg/dL Calcium 8.9 (8.5-10.1) mg/dL Phosphorus 4.0 (2.6-4.7) mg/dL Magnesium 2.2 (1.8-2.4) mg/dl Total Bilirubin 0.6 (0.2-1.0) mg/dL AST 32 (15-37) U/L ALT 28 (16-63) U/L Alkaline Phosphatase 50 (46-116) U/L Troponin I < 0.017 (0.00-0.056) ng/mL C-Reactive Protein 17.5 H* (<1.0) mg/dL Total Protein 7.6 (6.4-8.2) g/dl Albumin 3.3 L (3.4-5.0) g/dl Globulin 4.3 gm/dL Albumin/Globulin Ratio 0.8 L (1-2) TSH 3rd Generation 0.368 (0.358-3.74) uIU/mL Blood Type Sam Results Last 24 Hours: Microbiology 01/05/20 18:50 Aerobic Blood Culture - Preliminary Blood - Venous NO GROWTH AFTER 1 DAY Anaerobic Blood Culture - Preliminary NO GROWTH AFTER 1 DAY 01/05/20 18:30 Aerobic Blood Culture - Preliminary Blood - Venous - Lab Draw NO GROWTH AFTER 1 DAY Anaerobic Blood Culture - Preliminary NO GROWTH AFTER 1 DAY Med Orders - Current: Current Medications Acetaminophen (Tylenol) 650 mg PO Q4H PRN PRN Reason: Pain (Mild 1-3)/fever Last Admin: 01/06/20 09:13 Dose: 650 mg Documented by: Amlodipine Besylate (Norvasc) 10 mg PO DAILY [facility] Last Admin: 01/07/20 08:46 Dose: 10 mg Documented by: Aspirin (Halfprin) 81 mg PO DAILY [facility] Last Admin: 01/07/20 08:43 Dose: 81 mg Documented by: Dexamethasone (Dexamethasone) 6 mg PO DAILY [facility] Stop: 01/12/20 09:01 Last Admin: 01/07/20 08:46 Dose: 6 mg Documented by: Enoxaparin Sodium (Lovenox) 40 mg SUBCUT DAILY [facility] Last Admin: 01/07/20 08:42 Dose: 40 mg Documented by: Remdesivir 100 mg/ Sodium (Chloride) 100 mls @ 100 mls/hr IV Q24H [facility] Stop: 01/09/20 21:59 Last Admin: 01/06/20 22:39 Dose: 100 mls/hr Documented by: Latanoprost (Xalatan 0.005% Ophth Soln) 0 ml EYEBOTH DAILY [facility] Last Admin: 01/07/20 08:55 Dose: 1 drop Documented by: Montelukast Sodium (Singulair) 10 mg PO DAILY [facility] Last Admin: 01/07/20 08:45 Dose: 10 mg Documented by: Ondansetron HCl (Zofran) 4 mg IV Q4H PRN PRN Reason: Nausea/Vomiting Pregabalin (Lyrica) 75 mg PO QID [facility] Pregabalin (Lyrica) 25 mg PO QID [facility] Sodium Chloride (Saline Flush) 10 ml FLUSH ASDIRECTED PRN PRN Reason: Keep Vein Open Last Admin: 01/05/20 18:22 Dose: 10 ml Documented by: Tamsulosin HCl (Flomax) 0.4 mg PO DAILY [facility] Last Admin: 01/07/20 08:44 Dose: 0.4 mg Documented by: Discontinued Medications Azithromycin (Zithromax) 250 mg PO DAILY [facility] Stop: 01/07/20 09:01 Last Admin: 01/07/20 08:43 Dose: 250 mg Documented by: Remdesivir 200 mg/ Sodium (Chloride) 250 mls @ 250 mls/hr IV ONETIME ONE Stop: 01/05/20 23:59 Last Admin: 01/06/20 00:01 Dose: 250 mls/hr Documented by: Sodium Chloride (Normal Saline) 250 mls @ 75 mls/hr IV ASDIRECTED [facility] Last Admin: 01/06/20 13:49 Dose: 75 mls/hr Documented by: Pregabalin (Lyrica) 100 mg PO QID [facility] Last Admin: 01/07/20 08:43 Dose: 100 mg Documented by: Pregabalin (Lyrica) 100 mg PO ONETIME ONE Stop: 01/06/20 00:05 Last Admin: 01/06/20 01:14 Dose: 100 mg Documented by: Pregabalin (Lyrica) 25 mg PO QID [facility] - Exam Quality Assessment: Supplemental Oxygen (3 L per nasal cannula), DVT Prophylaxis (Lovenox) General: Alert, Oriented, Cooperative, Mild Distress HEENT: Pupils Equal, Pupils Reactive, Mucous Membr. Moist/[place] Neck: Supple, Trachea Midline. No: Lymphadenopathy Lungs: Decreased Breath Sounds, Crackles (Scattered) Cardiovascular: Regular Rate, Regular Rhythm, No Murmurs, Bradycardia (Down to the 30s at nighttime.) GI/Abdominal Exam: Normal Bowel Sounds, Soft, Non-Tender, No Distention (Male) Exam: Deferred Back Exam: Normal Inspection, Full Range of Motion Extremities: Normal Inspection, Normal Range of Motion, Non-Tender, No Pedal Edema, Normal Capillary Refill Peripheral Pulses: 2+: Radial (L), Radial (R), Dorsalis Pedis (L), Dorsalis Pedis (R) Skin: Warm, Dry, Intact Neurological: No New Focal Deficit Psy/Mental Status: Alert, Normal Affect, Normal Mood Sepsis Event Note - Evaluation Sepsis Screening Result: No Definite Risk - Focused Exam Vital Signs: Vital Signs Temp Pulse Resp BP Pulse Ox Pulse Ox 01/07/20 11:57 98.1 F 58 L 15 124/68 92 L 01/07/20 08:48 49 L 121/68 88 L 01/07/20 08:46 121/68 01/07/20 07:40 97.5 F 44 L 20 126/70 89 L 01/07/20 06:12 95 01/07/20 04:00 92 L 01/07/20 03:28 98.1 F 43 L 22 H 123/69 89 L - Problem List & Annotations (1) COVID-19 SNOMED Code(s): 443669825 Code(s): U07.1 - COVID-19 Status: Acute Priority: High Current Visit: Yes (2) Hypertension SNOMED Code(s): 54627466 Code(s): I10 - ESSENTIAL (PRIMARY) HYPERTENSION Status: Chronic Priority: High Current Visit: Yes Qualifiers: Hypertension type: unspecified Qualified Code(s): I10 - Essential (primary) hypertension (3) Hypoxia SNOMED Code(s): 813285928 Code(s): R09.02 - HYPOXEMIA Status: Acute Priority: High Current Visit: Yes - Problem List Review Problem List Initiated/Reviewed/Updated: Yes - My Orders Last 24 Hours: My Active Orders 01/08/20 05:11 CBC WITH AUTO DIFF [HEME] DAILY COMPREHENSIVE METABOLIC PN,CMP [CHEM] DAILY CRP [C-REACTIVE PROTEIN] [CHEM] DAILY D-DIMER QUANTITATIVE [COAG] DAILY MAGNESIUM [CHEM] DAILY 01/09/20 05:11 CBC WITH AUTO DIFF [HEME] DAILY COMPREHENSIVE METABOLIC PN,CMP [CHEM] DAILY CRP [C-REACTIVE PROTEIN] [CHEM] DAILY D-DIMER QUANTITATIVE [COAG] DAILY MAGNESIUM [CHEM] DAILY 01/10/20 05:11 CBC WITH AUTO DIFF [HEME] DAILY COMPREHENSIVE METABOLIC PN,CMP [CHEM] DAILY CRP [C-REACTIVE PROTEIN] [CHEM] DAILY D-DIMER QUANTITATIVE [COAG] DAILY MAGNESIUM [CHEM] DAILY 01/11/20 05:11 CBC WITH AUTO DIFF [HEME] DAILY COMPREHENSIVE METABOLIC PN,CMP [CHEM] DAILY CRP [C-REACTIVE PROTEIN] [CHEM] DAILY D-DIMER QUANTITATIVE [COAG] DAILY MAGNESIUM [CHEM] DAILY 01/12/20 05:11 CBC WITH AUTO DIFF [HEME] DAILY COMPREHENSIVE METABOLIC PN,CMP [CHEM] DAILY CRP [C-REACTIVE PROTEIN] [CHEM] DAILY D-DIMER QUANTITATIVE [COAG] DAILY MAGNESIUM [CHEM] DAILY - Assessment Assessment:: 01/07/20 * Patient bradycardic overnight down into the 30s. Echo obtained.Echocardiogram completed 01/07/2020: 1. Left ventricular ejection fraction, by visual est imation, is 60 to 65%. 2. There is mild aortic valve sclerosis without stenosis. 3. Trace mitral valve regurgitation. 4. Trace tricuspid valve regurgitation. 5. No regional wall motion abnormalities. * Patient has received 2 units of convalescent plasma. * Day 3 of dexamethasone and remdesivir. * Continues on 3 L of oxygen. * Lovenox for DVT prophylaxis. * Labs reveal: D-dimer 0.49, BUN 27, creatinine 1.2, GFR 59, troponin less than 0.017, C-reactive protein 17.5 * Vital signs have been stable and max temperature has been 100.0 over the past 24 hours. - Plan Plan:: 01/07/20 Plan * Continue remdesivir and dexamethasone * Hold off on further antibiotic treatment at this time. Patient had a severe reaction to penicillin G and broad-spectrum antibiotics do not appear necessary at this time. * Continue following renal function closely * FiO2 to keep SPO2 between 88 and 94%. * Continue home meds including amlodipine, aspirin, and Lyrica * Spirometer and flutter valve * Repeat labs in the a.m. * Continue to monitor vital signs and telemetry * VTE prophylaxis with Lovenox * CODE STATUS: Full code
--- NOTE | 2020-01-07 12:51 | CR ---
PROCEDURE INFORMATION: Exam: XR Chest, 1 View Exam date and time: 01/05/2020 6:35 PM Age: 74 years old Clinical indication: Other: Suspect covid, hypoxia. TECHNIQUE: Imaging protocol: XR of the chest Views: 1 view. COMPARISON: No relevant prior studies available. FINDINGS: Lungs: Asymmetric peripheral increased ill-defined density projecting over the right lower lung could be pneumonitis or artifact. Pleural space: Costophrenic angles are sharp. No pneumothorax. Heart/Mediastinum: Unremarkable. No cardiomegaly. Bones/joints: Age appropriate. IMPRESSION: Peripheral pneumonitis or artifact. Thank you for allowing us to participate in the care of your patient. Dictated and Authenticated by: Tai Arrieta MD 01/05/2020 8:16 PM Central Time ([place] & [place]) [facility]
[2020-01-07] MEDS: Pregabalin 75 MG Cap PO SCH ×3 (12:57→20:53)
[2020-01-07] MEDS ORDERED: Pregabalin 25 MG Cap PO SCH (13:00)
[2020-01-07] MEDS: REMDESIVIR 100 MG in Sodium Chloride 0.9% 100 ML IV SCH (20:53)
[2020-01-08] MEDS: Aspirin 81 MG Tab.EC PO SCH (08:28)
[2020-01-08] MEDS: Enoxaparin 40 MG/0.4 ML Syringe SUBCUT SCH (08:28)
[2020-01-08] MEDS: Tamsulosin 0.4 MG Cap.ER PO SCH (08:28)
[2020-01-08] MEDS: Montelukast 10 MG Tab PO SCH (08:28)
[2020-01-08] MEDS: Pregabalin 75 MG Cap PO SCH ×4 (08:29→21:14)
[2020-01-08] MEDS: Pregabalin 25 MG Cap PO SCH ×4 (08:29→21:14)
[2020-01-08] MEDS: Dexamethasone 4 MG Tab PO SCH (08:29)
[2020-01-08] MEDS: Latanoprost 0.005% Ophth Soln 2.5 ML Bottle EYEBOTH SCH (08:30)
[2020-01-08] MEDS: amLODIPine 10 MG Tab PO SCH (08:30)
[2020-01-08] MEDS ORDERED: Magnesium Hydroxide 400 MG/5 ML Susp 30 ML Cup PO ONE (08:38)
--- NOTE | 2020-01-08 12:32 | PCM.PN ---
- General Info Date of Service: 01/08/20 Admission Dx/Problem (Free Text): Admission Diagnosis/Problem Admission Diagnosis/Problem Hypoxia Subjective Update: Reports feeling much better today than yesterday. Continues on 3 L of oxygen per nasal cannula. will be bringing his CPAP from home. Functional Status: Reports: Pain Controlled, Tolerating Diet, Ambulating, Urinating, Incentive Spirometry - Review of Systems General: Reports: No Symptoms HEENT: Reports: Glasses, Headaches (Reports that headaches are better) Pulmonary: Reports: Shortness of Breath (With increased activity), Cough. Denies: Sputum, Wheezing Cardiovascular: Reports: No Symptoms Gastrointestinal: Reports: Constipation Genitourinary: Reports: No Symptoms Musculoskeletal: Reports: No Symptoms Skin: Reports: No Symptoms Neurological: Reports: No Symptoms Psychiatric: Reports: No Symptoms - Patient Data Vitals - Most Recent: Last Vital Signs Temp 97.3 F 01/08/20 12:08 Pulse 44 L 01/08/20 12:08 Resp 18 01/08/20 12:08 BP 118/62 01/08/20 12:08 Pulse Ox 89 L 01/08/20 12:08 Weight - Most Recent: 239 lb 14.4 oz I&O - Last 24 Hours: Intake & Output 01/07/20 01/08/20 01/08/20 22:59 06:59 14:59 Intake Total 1340 450 180 Output Total 1000 850 Balance 340 -400 180 Lab Results Last 24 Hours: Laboratory Results - last 24 hr 01/08/20 01/08/20 01/08/20 Range/Units 05:27 05:27 05:27 WBC 4.86 (4.23-9.07) K/mm3 RBC 4.99 (4.63-6.08) M/mm3 Hgb 14.6 (13.7-17.5) gm/dl Hct 43.9 (40.1-51.0) % MCV 88.0 (79.0-92.2) fl MCH 29.3 (25.7-32.2) pg MCHC 33.3 (32.2-35.5) g/dl RDW Std Deviation 46.3 H (35.1-43.9) fL Plt Count 231 (163-337) K/mm3 MPV 9.9 (9.4-12.3) fl Neut % (Auto) 75.5 H (34.0-67.9) % Lymph % (Auto) 16.9 L (21.8-53.1) % [place] % (Auto) 7.2 (5.3-12.2) % Eos % (Auto) 0 L (0.8-7.0) Baso % (Auto) 0.2 (0.1-1.2) % Neut # (Auto) 3.67 (1.78-5.38) K/mm3 Lymph # (Auto) 0.82 L (1.32-3.57) K/mm3 [place] # (Auto) 0.35 (0.30-0.82) K/mm3 Eos # (Auto) 0.00 L (0.04-0.54) K/mm3 Baso # (Auto) 0.01 (0.01-0.08) K/mm3 D-Dimer, Quantitative 0.33 (0.19-0.50) mg/L Sodium 138 (136-145) mEq/L Potassium 4.1 (3.5-5.1) mEq/L Chloride 106 (98-107) mEq/L Carbon Dioxide 22 (21-32) mEq/L Anion Gap 14.1 (5-15) BUN 29 H (7-18) mg/dL Creatinine 1.2 (0.7-1.3) mg/dL Est Cr Clr Drug Dosing 64.30 mL/min Estimated GFR (MDRD) 59 (>60) mL/min BUN/Creatinine Ratio 24.2 H (14-18) Glucose 104 (83-115) mg/dL Calcium 8.3 L (8.5-10.1) mg/dL Magnesium 2.0 (1.8-2.4) mg/dl Total Bilirubin 0.5 (0.2-1.0) mg/dL AST 24 (15-37) U/L ALT 23 (16-63) U/L Alkaline Phosphatase 46 (46-116) U/L C-Reactive Protein 9.4 H* (<1.0) mg/dL Total Protein 6.9 (6.4-8.2) g/dl Albumin 3.0 L (3.4-5.0) g/dl Globulin 3.9 gm/dL Albumin/Globulin Ratio 0.8 L (1-2) Sam Results Last 24 Hours: Microbiology 01/05/20 18:50 Aerobic Blood Culture - Preliminary Blood - Venous NO GROWTH AFTER 2 DAYS Anaerobic Blood Culture - Preliminary NO GROWTH AFTER 2 DAYS 01/05/20 18:30 Aerobic Blood Culture - Preliminary Blood - Venous - Lab Draw NO GROWTH AFTER 2 DAYS Anaerobic Blood Culture - Preliminary NO GROWTH AFTER 2 DAYS Med Orders - Current: Current Medications Acetaminophen (Tylenol) 650 mg PO Q4H PRN PRN Reason: Pain (Mild 1-3)/fever Last Admin: 01/06/20 09:13 Dose: 650 mg Documented by: Amlodipine Besylate (Norvasc) 10 mg PO DAILY [facility] Last Admin: 01/08/20 08:30 Dose: 10 mg Documented by: Aspirin (Halfprin) 81 mg PO DAILY [facility] Last Admin: 01/08/20 08:28 Dose: 81 mg Documented by: Dexamethasone (Dexamethasone) 6 mg PO DAILY [facility] Stop: 01/12/20 09:01 Last Admin: 01/08/20 08:29 Dose: 6 mg Documented by: Enoxaparin Sodium (Lovenox) 40 mg SUBCUT DAILY [facility] Last Admin: 01/08/20 08:28 Dose: 40 mg Documented by: Remdesivir 100 mg/ Sodium (Chloride) 100 mls @ 100 mls/hr IV Q24H [facility] Stop: 01/09/20 21:59 Last Admin: 01/07/20 20:53 Dose: 100 mls/hr Documented by: Latanoprost (Xalatan 0.005% Ophth Soln) 0 ml EYEBOTH DAILY [facility] Last Admin: 01/08/20 08:30 Dose: 1 drop Documented by: Montelukast Sodium (Singulair) 10 mg PO DAILY [facility] Last Admin: 01/08/20 08:28 Dose: 10 mg Documented by: Ondansetron HCl (Zofran) 4 mg IV Q4H PRN PRN Reason: Nausea/Vomiting Pregabalin (Lyrica) 75 mg PO QID [facility] Last Admin: 01/08/20 12:04 Dose: 75 mg Documented by: Pregabalin (Lyrica) 25 mg PO QID [facility] Last Admin: 01/08/20 12:04 Dose: 25 mg Documented by: Sodium Chloride (Saline Flush) 10 ml FLUSH ASDIRECTED PRN PRN Reason: Keep Vein Open Last Admin: 01/05/20 18:22 Dose: 10 ml Documented by: Tamsulosin HCl (Flomax) 0.4 mg PO DAILY [facility] Last Admin: 01/08/20 08:28 Dose: 0.4 mg Documented by: Discontinued Medications Azithromycin (Zithromax) 250 mg PO DAILY [facility] Stop: 01/07/20 09:01 Last Admin: 01/07/20 08:43 Dose: 250 mg Documented by: Remdesivir 200 mg/ Sodium (Chloride) 250 mls @ 250 mls/hr IV ONETIME ONE Stop: 01/05/20 23:59 Last Admin: 01/06/20 00:01 Dose: 250 mls/hr Documented by: Sodium Chloride (Normal Saline) 250 mls @ 75 mls/hr IV ASDIRECTED [facility] Last Admin: 01/06/20 13:49 Dose: 75 mls/hr Documented by: Magnesium Hydroxide (Milk Of Magnesia) 30 ml PO ONETIME ONE Stop: 01/08/20 08:39 Last Admin: 01/08/20 08:50 Dose: 30 ml Documented by: Pregabalin (Lyrica) 100 mg PO QID [facility] Last Admin: 01/07/20 08:43 Dose: 100 mg Documented by: Pregabalin (Lyrica) 100 mg PO ONETIME ONE Stop: 01/06/20 00:05 Last Admin: 01/06/20 01:14 Dose: 100 mg Documented by: Pregabalin (Lyrica) 25 mg PO QID [facility] - Exam Quality Assessment: Supplemental Oxygen (3 L per nasal cannula), DVT Prophylaxis (Lovenox) General: Alert, Oriented, Cooperative, Mild Distress HEENT: Pupils Equal, Pupils Reactive, Mucous Membr. Moist/[place] Neck: Supple, Trachea Midline. No: Lymphadenopathy Lungs: Normal Respiratory Effort, Crackles (Right posterior) Cardiovascular: Regular Rhythm, Bradycardia. No: No Murmurs GI/Abdominal Exam: Normal Bowel Sounds, Soft, Non-Tender, No Distention (Male) Exam: Deferred Back Exam: Normal Inspection, Full Range of Motion Extremities: Normal Inspection, Normal Range of Motion, Non-Tender, No Pedal Edema, Normal Capillary Refill Peripheral Pulses: 2+: Radial (L), Radial (R), Dorsalis Pedis (L), Dorsalis Pe dis (R) Skin: Warm, Dry, Intact Neurological: No New Focal Deficit Psy/Mental Status: Alert, Normal Affect, Normal Mood Sepsis Event Note - Evaluation Sepsis Screening Result: No Definite Risk - Focused Exam Vital Signs: Vital Signs Temp Pulse Resp BP Pulse Ox Pulse Ox 01/08/20 12:08 97.3 F 44 L 18 118/62 89 L 01/08/20 08:30 135/69 01/08/20 07:47 97.3 F 42 L 20 135/69 89 L 01/08/20 06:07 89 L 01/08/20 05:20 97.7 F 42 L 20 116/68 90 L - Problem List & Annotations (1) COVID-19 SNOMED Code(s): 043954714 Code(s): U07.1 - COVID-19 Status: Acute Priority: High Current Visit: Yes (2) Hypertension SNOMED Code(s): 96847608 Code(s): I10 - ESSENTIAL (PRIMARY) HYPERTENSION Status: Chronic Priority: High Current Visit: Yes Qualifiers: Hypertension type: unspecified Qualified Code(s): I10 - Essential (primary) hypertension (3) Hypoxia SNOMED Code(s): 771534285 Code(s): R09.02 - HYPOXEMIA Status: Acute Priority: High Current Visit: Yes - Problem List Review Problem List Initiated/Reviewed/Updated: Yes - My Orders Last 24 Hours: My Active Orders 01/09/20 05:11 CBC WITH AUTO DIFF [HEME] DAILY COMPREHENSIVE METABOLIC PN,CMP [CHEM] DAILY CRP [C-REACTIVE PROTEIN] [CHEM] DAILY D-DIMER QUANTITATIVE [COAG] DAILY MAGNESIUM [CHEM] DAILY 01/10/20 05:11 CBC WITH AUTO DIFF [HEME] DAILY COMPREHENSIVE METABOLIC PN,CMP [CHEM] DAILY CRP [C-REACTIVE PROTEIN] [CHEM] DAILY D-DIMER QUANTITATIVE [COAG] DAILY MAGNESIUM [CHEM] DAILY 01/11/20 05:11 CBC WITH AUTO DIFF [HEME] DAILY COMPREHENSIVE METABOLIC PN,CMP [CHEM] DAILY CRP [C-REACTIVE PROTEIN] [CHEM] DAILY D-DIMER QUANTITATIVE [COAG] DAILY MAGNESIUM [CHEM] DAILY 01/12/20 05:11 CBC WITH AUTO DIFF [HEME] DAILY COMPREHENSIVE METABOLIC PN,CMP [CHEM] DAILY CRP [C-REACTIVE PROTEIN] [CHEM] DAILY D-DIMER QUANTITATIVE [COAG] DAILY MAGNESIUM [CHEM] DAILY - Assessment Assessment:: 01/07/20 * Patient bradycardic overnight down into the 30s. Echo obtained.Echocardiogram completed 01/07/2020: 1. Left ventricular ejection fraction, by visual estimation, is 60 to 65%. 2. There is mild aortic valve sclerosis without stenosis. 3. Trace mitral valve regurgitation. 4. Trace tricuspid valve regurgitation. 5. No regional wall motion abnormalities. * Patient has received 2 units of convalescent plasma. * Day 3 of dexamethasone and remdesivir. * Continues on 3 L of oxygen. * Lovenox for DVT prophylaxis. * Labs reveal: D-dimer 0.49, BUN 27, creatinine 1.2, GFR 59, troponin less than 0.017, C-reactive protein 17.5 * Vital signs have been stable and max temperature has been 100.0 over the past 24 hours. 01/08/20 * Patient's heart rate has been running sinus of bradycardia in the 40s and 50s. Heart rate again dipped down into the 30s overnight however patient was asymptomatic. I did consult consulting analyst on-call at [facility] in [place] and he states that no further interventions are needed at this time. However we will continue to monitor pulse oximetry as this may correlate to sleep apnea and patient has not had his CPAP. * Patient is on day 4 of remdesivir and day 3 of dexamethasone. * Patient has been afebrile the past 24 hours. * He is on 3 L of oxygen per nasal cannula. * Labs reveal: D-dimer 0.33, BUN 29, creatinine 1.2, GFR 59, C-reactive protein 9.4 - Plan Plan:: 01/07/20 Plan * Continue remdesivir and dexamethasone * Hold off on further antibiotic treatment at this time. Patient had a severe reaction to penicillin G and broad-spectrum antibiotics do not appear necessary at this time. * Continue following renal function closely * FiO2 to keep SPO2 between 88 and 94%. * Continue home meds including amlodipine, aspirin, and Lyrica * Spirometer and flutter valve * Repeat labs in the a.m. * Continue to monitor vital signs and telemetry * VTE prophylaxis with Lovenox * CODE STATUS: Full code 01/08/20 * Continue remdesivir and dexamethasone. * Continue to monitor renal function. * Respiratory therapy to continue to titrate oxygen. * Spirometry and flutter valve * Lovenox for DVT prophylaxis. * Continuous pulse ox, telemetry * Repeat labs in the a.m. * Obtain CPAP from home for patient.
[2020-01-08] MEDS: REMDESIVIR 100 MG in Sodium Chloride 0.9% 100 ML IV SCH (21:15)
[2020-01-09] MEDS: Aspirin 81 MG Tab.EC PO SCH (09:27)
[2020-01-09] MEDS: Pregabalin 25 MG Cap PO SCH ×4 (09:28→21:34)
[2020-01-09] MEDS: Dexamethasone 4 MG Tab PO SCH (09:28)
[2020-01-09] MEDS: Pregabalin 75 MG Cap PO SCH ×4 (09:28→21:34)
[2020-01-09] MEDS: Tamsulosin 0.4 MG Cap.ER PO SCH (09:30)
[2020-01-09] MEDS: amLODIPine 10 MG Tab PO SCH (09:30)
[2020-01-09] MEDS: Enoxaparin 40 MG/0.4 ML Syringe SUBCUT SCH (09:31)
[2020-01-09] MEDS: Montelukast 10 MG Tab PO SCH (09:31)
[2020-01-09] MEDS: Latanoprost 0.005% Ophth Soln 2.5 ML Bottle EYEBOTH SCH (09:32)
[2020-01-09] MEDS ORDERED: Carboxymethylcellulose Sodium 1% Ophth Gel 15 ML Bottle EYEBOTH PRN (09:46)
--- NOTE | 2020-01-09 12:16 | PCM.PN ---
- General Info Date of Service: 01/09/20 Admission Dx/Problem (Free Text): Admission Diagnosis/Problem Admission Diagnosis/Problem Hypoxia Subjective Update: Patient reports feeling well today. States he feels he is ready to go home. He is still on 3 L of oxygen. Functional Status: Reports: Pain Controlled, Tolerating Diet, Ambulating, Urinating, Incentive Spirometry - Review of Systems General: Reports: No Symptoms HEENT: Reports: Glasses Pulmonary: Reports: Cough. Denies: Sputum Cardiovascular: Reports: No Symptoms Gastrointestinal: Reports: No Symptoms Genitourinary: Reports: No Symptoms Musculoskeletal: Reports: No Symptoms Skin: Reports: No Symptoms Neurological: Reports: No Symptoms Psychiatric: Reports: No Symptoms - Patient Data Vitals - Most Recent: Last Vital Signs Temp 97.3 F 01/09/20 07:38 Pulse 42 L 01/09/20 07:38 Resp 22 H 01/09/20 07:38 BP 126/70 01/09/20 09:30 Pulse Ox 88 L 01/09/20 07:38 Weight - Most Recent: 238 lb I&O - Last 24 Hours: Intake & Output 01/08/20 01/09/20 01/09/20 22:59 06:59 14:59 Intake Total 800 350 180 Output Total 1775 0 Balance -975 350 180 Lab Results Last 24 Hours: Laboratory Results - last 24 hr 01/09/20 01/09/20 01/09/20 Range/Units 05:09 05:09 05:09 WBC 5.68 (4.23-9.07) K/mm3 RBC 4.90 (4.63-6.08) M/mm3 Hgb 14.5 (13.7-17.5) gm/dl Hct 43.0 (40.1-51.0) % MCV 87.8 (79.0-92.2) fl MCH 29.6 (25.7-32.2) pg MCHC 33.7 (32.2-35.5) g/dl RDW Std Deviation 46.0 H (35.1-43.9) fL Plt Count 264 (163-337) K/mm3 MPV 9.6 (9.4-12.3) fl Neut % (Auto) 78.1 H (34.0-67.9) % Lymph % (Auto) 14.1 L (21.8-53.1) % [place] % (Auto) 7.4 (5.3-12.2) % Eos % (Auto) 0 L (0.8-7.0) Baso % (Auto) 0.0 L (0.1-1.2) % Neut # (Auto) 4.44 (1.78-5.38) K/mm3 Lymph # (Auto) 0.80 L (1.32-3.57) K/mm3 [place] # (Auto) 0.42 (0.30-0.82) K/mm3 Eos # (Auto) 0.00 L (0.04-0.54) K/mm3 Baso # (Auto) 0.00 L (0.01-0.08) K/mm3 Manual Slide Review Normal smear D-Dimer, Quantitative 0.24 (0.19-0.50) mg/L Sodium 137 (136-145) mEq/L Potassium 4.1 (3.5-5.1) mEq/L Chloride 105 (98-107) mEq/L Carbon Dioxide 22 (21-32) mEq/L Anion Gap 14.1 (5-15) BUN 30 H (7-18) mg/dL Creatinine 1.1 (0.7-1.3) mg/dL Est Cr Clr Drug Dosing 70.14 mL/min Estimated GFR (MDRD) > 60 (>60) mL/min BUN/Creatinine Ratio 27.3 H (14-18) Glucose 101 (83-115) mg/dL Calcium 8.3 L (8.5-10.1) mg/dL Magnesium 2.3 (1.8-2.4) mg/dl Total Bilirubin 0.6 (0.2-1.0) mg/dL AST 23 (15-37) U/L ALT 24 (16-63) U/L Alkaline Phosphatase 44 L (46-116) U/L C-Reactive Protein 6.3 H* (<1.0) mg/dL Total Protein 6.8 (6.4-8.2) g/dl Albumin 2.9 L (3.4-5.0) g/dl Globulin 3.9 gm/dL Albumin/Globulin Ratio 0.7 L (1-2) Sam Results Last 24 Hours: Microbiology 01/05/20 18:50 Aerobic Blood Culture - Preliminary Blood - Venous NO GROWTH AFTER 3 DAYS Anaerobic Blood Culture - Preliminary NO GROWTH AFTER 3 DAYS 01/05/20 18:30 Aerobic Blood Culture - Preliminary Blood - Venous - Lab Draw NO GROWTH AFTER 3 DAYS Anaerobic Blood Culture - Preliminary NO GROWTH AFTER 3 DAYS Med Orders - Current: Current Medications Acetaminophen (Tylenol) 650 mg PO Q4H PRN PRN Reason: Pain (Mild 1-3)/fever Last Admin: 01/06/20 09:13 Dose: 650 mg Documented by: Amlodipine Besylate (Norvasc) 10 mg PO DAILY [facility] Last Admin: 01/09/20 09:30 Dose: 10 mg Documented by: Artificial Tears (Refresh Liquigel 1%) 1 ml EYEBOTH ASDIRECTED PRN PRN Reason: Dry Eyes Aspirin (Halfprin) 81 mg PO DAILY [facility] Last Admin: 01/09/20 09:27 Dose: 81 mg Documented by: Dexamethasone (Dexamethasone) 6 mg PO DAILY [facility] Stop: 01/12/20 09:01 Last Admin: 01/09/20 09:28 Dose: 6 mg Documented by: Enoxaparin Sodium (Lovenox) 40 mg SUBCUT DAILY [facility] Last Admin: 01/09/20 09:31 Dose: 40 mg Documented by: Remdesivir 100 mg/ Sodium (Chloride) 100 mls @ 100 mls/hr IV Q24H [facility] Stop: 01/09/20 21:59 Last Admin: 01/08/20 21:15 Dose: 100 mls/hr Documented by: Latanoprost (Xalatan 0.005% Ophth Soln) 0 ml EYEBOTH DAILY [facility] Last Admin: 01/09/20 09:32 Dose: 1 drop Documented by: Montelukast Sodium (Singulair) 10 mg PO DAILY [facility] Last Admin: 01/09/20 09:31 Dose: 10 mg Documented by: Ondansetron HCl (Zofran) 4 mg IV Q4H PRN PRN Reason: Nausea/Vomiting Pregabalin (Lyrica) 75 mg PO QID [facility] Last Admin: 01/09/20 09:28 Dose: 75 mg Documented by: Pregabalin (Lyrica) 25 mg PO QID [facility] Last Admin: 01/09/20 09:28 Dose: 25 mg Documented by: Sodium Chloride (Saline Flush) 10 ml FLUSH ASDIRECTED PRN PRN Reason: Keep Vein Open Last Admin: 01/05/20 18:22 Dose: 10 ml Documented by: Tamsulosin HCl (Flomax) 0.4 mg PO DAILY [facility] Last Admin: 01/09/20 09:30 Dose: 0.4 mg Documented by: Discontinued Medications Azithromycin (Zithromax) 250 mg PO DAILY [facility] Stop: 01/07/20 09:01 Last Admin: 01/07/20 08:43 Dose: 250 mg Documented by: Remdesivir 200 mg/ Sodium (Chloride) 250 mls @ 250 mls/hr IV ONETIME ONE Stop: 01/05/20 23:59 Last Admin: 01/06/20 00:01 Dose: 250 mls/hr Documented by: Sodium Chloride (Normal Saline) 250 mls @ 75 mls/hr IV ASDIRECTED [facility] Last Admin: 01/06/20 13:49 Dose: 75 mls/hr Documented by: Magnesium Hydroxide (Milk Of Magnesia) 30 ml PO ONETIME ONE Stop: 01/08/20 08:39 Last Admin: 01/08/20 08:50 Dose: 30 ml Documented by: Pregabalin (Lyrica) 100 mg PO QID [facility] Last Admin: 01/07/20 08:43 Dose: 100 mg Documented by: Pregabalin (Lyrica) 100 mg PO ONETIME ONE Stop: 01/06/20 00:05 Last Admin: 01/06/20 01:14 Dose: 100 mg Documented by: Pregabalin (Lyrica) 25 mg PO QID [facility] - Exam Quality Assessment: Supplemental Oxygen (3 L per nasal cannula), DVT Prophylaxis (Lovenox) General: Alert, Oriented, Cooperative, No Acute Distress HEENT: Pupils Equal, Pupils Reactive, Mucous Membr. Moist/[place] Neck: Supple, Trachea Midline. No: Lymphadenopathy Lungs: Normal Respiratory Effort, Crackles (Left posterior lobe) Cardiovascular: Regular Rate, No Murmurs, Bradycardia GI/Abdominal Exam: Normal Bowel Sounds, Soft, Non-Tender, No Distention (Male) Exam: Deferred Back Exam: Normal Inspection, Full Range of Motion Extremities: Normal Inspection, Normal Range of Motion, Non-Tender, No Pedal Edema, Normal Capillary Refill Peripheral Pulses: 2+: Radial (L), Radial (R), Dorsalis Pedis (L), Dorsalis Pedis (R) Skin: Warm, Dry, Intact Neurological: No New Focal Deficit Psy/Mental Status: Alert, Normal Affect, Normal Mood Sepsis Event Note - Evaluation Sepsis Screening Result: No Definite Risk - Focused Exam Vital Signs: Vital Signs Temp Pulse Resp BP Pulse Ox Pulse Ox 01/09/20 09:30 126/70 01/09/20 07:38 97.3 F 42 L 22 H 126/70 88 L 01/09/20 04:47 97.7 F 38 L 18 112/67 92 L 01/09/20 04:46 91 L - Problem List & Annotations (1) COVID-19 SNOMED Code(s): 466770066 Code(s): U07.1 - COVID-19 Status: Acute Priority: High Current Visit: Yes (2) Hypertension SNOMED Code(s): 75236325 Code(s): I10 - ESSENTIAL (PRIMARY) HYPERTENSION Status: Chronic Priority: High Current Visit: Yes Qualifiers: Hypertension type: unspecified Qualified Code(s): I10 - Essential (primary) hypertension (3) Hypoxia SNOMED Code(s): 894066958 Code(s): R09.02 - HYPOXEMIA Status: Acute Priority: High Current Visit: Yes - Problem List Review Problem List Initiated/Reviewed/Updated: Yes - My Orders Last 24 Hours: My Active Orders 01/09/20 09:46 Carboxymethylcellulose Sodium [Refresh Liquigel 1%] 1 ml EYEBOTH ASDIRECTED PRN 01/10/20 05:11 CBC WITH AUTO DIFF [HEME] DAILY COMPREHENSIVE METABOLIC PN,CMP [CHEM] DAILY CRP [C-REACTIVE PROTEIN] [CHEM] DAILY D-DIMER QUANTITATIVE [COAG] DAILY MAGNESIUM [CHEM] DAILY 01/11/20 05:11 CBC WITH AUTO DIFF [HEME] DAILY COMPREHENSIVE METABOLIC PN,CMP [CHEM] DAILY CRP [C-REACTIVE PROTEIN] [CHEM] DAILY D-DIMER QUANTITATIVE [COAG] DAILY MAGNESIUM [CHEM] DAILY 01/12/20 05:11 CBC WITH AUTO DIFF [HEME] DAILY COMPREHENSIVE METABOLIC PN,CMP [CHEM] DAILY CRP [C-REACTIVE PROTEIN] [CHEM] DAILY D-DIMER QUANTITATIVE [COAG] DAILY MAGNESIUM [CHEM] DAILY - Assessment Assessment:: 01/07/20 * Patient bradycardic overnight down into the 30s. Echo obtained.Echocardiogram completed 01/07/2020: 1. Left ventricular ejection fraction, by visual estimation, is 60 to 65%. 2. There is mild aortic valve sclerosis without stenosis. 3. Trace mitral valve regurgitation. 4. Trace tricuspid valve regurgitation. 5. No regional wall motion abnormalities. * Patient has received 2 units of convalescent plasma. * Day 2 of dexamethasone and remdesivir. * Continues on 3 L of oxygen. * Lovenox for DVT prophylaxis. * Labs reveal: D-dimer 0.49, BUN 27, creatinine 1.2, GFR 59, troponin less than 0.017, C-reactive protein 17.5 * Vital signs have been stable and max temperature has been 100.0 over the past 24 hours. 01/08/20 * Patient's heart rate has been running sinus of bradycardia in the 40s and 50s. Heart rate again dipped down into the 30s overnight however patient was asymptomatic. I did consult guide escort on-call at [facility] in [place] and he states that no further interventions are needed at this time. However we will continue to monitor pulse oximetry as this may correlate to sleep apnea and patient has not had his CPAP. * Patient is on day 3 of remdesivir and day 3 of dexamethasone. * Patient has been afebrile the past 24 hours. * He is on 3 L of oxygen per nasal cannula. * Labs reveal: D-dimer 0.33, BUN 29, creatinine 1.2, GFR 59, C-reactive protein 9.4 01/09/20 * Patient did have his usually bring CPAP from home last evening. * Patient is on day 4 of remdesivir and dexamethasone. * Continues on 3 L of oxygen per nasal cannula * Blood cultures are showing no growth after 3 days. * Using his incentive spirometer hourly * He is up independently in the room * Labs are improving and essentially are unremarkable. - Plan Plan:: 01/07/20 Plan * Continue remdesivir and dexamethasone * Hold off on further antibiotic treatment at this time. Patient had a severe reaction to penicillin G and broad-spectrum antibiotics do not appear necessary at this time. * Continue following renal function closely * FiO2 to keep SPO2 between 88 and 94%. * Continue home meds including amlodipine, aspirin, and Lyrica * Spirometer and flutter valve * Repeat labs in the a.m. * Continue to monitor vital signs and telemetry * VTE prophylaxis with Lovenox * CODE STATUS: Full code 01/08/20 * Continue remdesivir and dexamethasone. * Continue to monitor renal function. * Respiratory therapy to continue to titrate oxygen. * Spirometry and flutter valve * Lovenox for DVT prophylaxis. * Continuous pulse ox, telemetry * Repeat labs in the a.m. * Obtain CPAP from home for patient. 01/09/20 * Continue remdesivir and dexamethasone * Titrate oxygen * Use incentive spirometer and flutter valve every 1 hour while awake * Continue Lovenox for DVT prophylaxis * Patient is a full code Patient will likely be here greater than 96 hours due to the 5-day treatment course of Covid.
[2020-01-09] MEDS: REMDESIVIR 100 MG in Sodium Chloride 0.9% 100 ML IV SCH (21:33)
[2020-01-10 08:09] VITALS: BP 122/67; PULSE 54
[2020-01-10] MEDS: amLODIPine 10 MG Tab PO SCH (08:31)
[2020-01-10] MEDS: Montelukast 10 MG Tab PO SCH (08:31)
[2020-01-10] MEDS: Pregabalin 25 MG Cap PO SCH (08:31)
[2020-01-10] MEDS: Aspirin 81 MG Tab.EC PO SCH (08:31)
[2020-01-10] MEDS: Enoxaparin 40 MG/0.4 ML Syringe SUBCUT SCH (08:31)
[2020-01-10] MEDS: Pregabalin 75 MG Cap PO SCH (08:31)
[2020-01-10] MEDS: Dexamethasone 4 MG Tab PO SCH (08:32)
[2020-01-10] MEDS: Tamsulosin 0.4 MG Cap.ER PO SCH (08:32)
[2020-01-10] MEDS: Latanoprost 0.005% Ophth Soln 2.5 ML Bottle EYEBOTH SCH (08:34)
--- NOTE | 2020-01-10 12:23 | PCM.DCSUM1 ---
Discharge Summary - Hospital Course HPI Initial Comments: 74-year-old male with history of hypertension presents to the emergency department with chills and shortness of breath on exertion. Patient started getting sick on 12/29/2019 and had Covid testing at the clinic on , 01/03/2020. His did have COVID-19 approximately 3 weeks ago. At the clinic patient was placed on dexamethasone and amoxicillin. He has a severe allergy to penicillin. At home his oxygen saturations today were between 85 and 89% and in the emergency department he was between 88 and 91% on room air. Denies any cough. He does not have any abdominal symptoms including nausea, vomiting, abdominal pain, or diarrhea. He does not have any appetite. Patient is a former smoker who quit in 1999. In the emergency department he had a normal white count at 7.51 with C-reactive protein of 7.9 and a D-dimer of 0.36. Blood gas demonstrated a pH of 7.49, PCO2 25.8, and PO2 of 60.0. Bicarb 19.3. This was on room air. He does show some renal insufficiency with an estimated GFR of 49 and a creatinine of 1.4. Diagnosis: Stroke: No - Discharge Data Discharge Date: 01/10/20 (Admit date:01/05/20) Discharge Disposition: Home, Self-Care 01 Condition: Good - Referral to Home Health Primary Care Physician: Yung Cruz MD - Discharge Diagnosis/Problem(s) (1) COVID-19 SNOMED Code(s): 469507572 ICD Code: U07.1 - COVID-19 Status: Acute Priority: High (2) Hypertension SNOMED Code(s): 66759982 ICD Code: I10 - ESSENTIAL (PRIMARY) HYPERTENSION Status: Chronic Priority: High Qualifiers: Hypertension type: unspecified Qualified Code(s): I10 - Essential (primary) hypertension (3) Hypoxia SNOMED Code(s): 372061233 ICD Code: R09.02 - HYPOXEMIA Status: Acute Priority: High - Patient Summary/Data Hospital Course: 01/05/20 Assessment COVID-19 with hypoxemia likely secondary to COVID-19 pneumonia * Chest x-ray has only subtle changes that are likely secondary to COVID-19 Pneumonia * Patient is requiring supplemental FiO2 to keep SPO2 in the low 90s. * He has felt ill since 12/29/2019 * Was started on azithromycin and dexamethasone 2 days ago * had COVID-19 approximately 3 weeks ago * WBC 4.51 with 2% bands and 81% neutrophils, hypoxemia on ABG, C-reactive protein 7.9, D-dimer 0.36 Acute versus chronic renal insufficiency * Estimated GFR 49 with a creatinine of 1.4 and BUN of 26 * Possibly secondary to current illness. Avoid overhydration secondary to worsening oxygenation when fluid overloaded History of hypertension * Blood pressure in the ER 158/87 * On Norvasc at home Plan * Admit to medical floor on continuous pulse ox * Start remdesivir and continue dexamethasone * Finish azithromycin * Hold off on further antibiotic treatment at this time. Patient had a severe reaction to penicillin G and broad-spectrum antibiotics do not appear necessary at this time. * Continue following renal function closely * FiO2 to keep SPO2 between 88 and 94%. * Consider convalescent plasma if condition worsens. * Continue home meds including amlodipine, aspirin, and Lyrica * VTE prophylaxis with Lovenox * CODE STATUS: Full code 01/06/20 Plan:: Assessment COVID-19 with hypoxemia likely secondary to COVID-19 pneumonia * Patient has worsened overnight. He is requiring increasing O2 supplementation. * He has felt ill since 12/29/2019 * Finished azithromycin * Received 1 dose of remdesivir * had COVID-19 approximately 3 weeks ago * WBC 4.51 with 2% bands and 81% neutrophils, hypoxemia on ABG, C-reactive protein 7.9, D-dimer 0.36 Acute versus chronic renal insufficiency * Estimated GFR 49 with a creatinine of 1.4 and BUN of 26 * Possibly secondary to current illness. Avoid overhydration secondary to worsening oxygenation when fluid overloaded History of hypertension * Blood pressure well controlled * On home dose of Norvasc Plan * Continue remdesivir and dexamethasone * Convalescent plasma 2 units ordered * I spoke with Shon to provide information about convalescent plasma. I offered the "fax sheet for patients and parents/caregivers, for COVID-19 convalescent plasma to read and review. I stated that therapy has been approved by an emergency use authorization process and has not fully been FDA reviewed or approved. I shared potential risks from the therapy including transmission of blood borne pathogen such as HIV and hepatitis C, allergic and transfusion related reactions, post transfusion purpura. Additionally theoretical risks include a phenomenon called antibodydependent enhancement of infection such as is seen in dengue or attenuation of an immune response that may make patients more susceptible to reinfection. * Hold off on further antibiotic treatment at this time. Patient had a severe reaction to penicillin G and broad-spectrum antibiotics do not appear necessary at this time. * Continue following renal function closely * FiO2 to keep SPO2 between 88 and 94%. * Continue home meds including amlodipine, aspirin, and Lyrica * VTE prophylaxis with Lovenox * CODE STATUS: Full code - Assessment Assessment:: 01/07/20 * Patient bradycardic overnight down into the 30s. Echo obtained.Echocardiogram completed 01/07/2020: 1. Left ventricular ejection fraction, by visual estimation, is 60 to 65%. 2. There is mild aortic valve sclerosis without stenosis. 3. Trace mitral valve regurgitation. 4. Trace tricuspid valve regurgitation. 5. No regional wall motion abnormalities. * Patient has received 2 units of convalescent plasma. * Day 2 of dexamethasone and remdesivir. * Continues on 3 L of oxygen. * Lovenox for DVT prophylaxis. * Labs reveal: D-dimer 0.49, BUN 27, creatinine 1.2, GFR 59, troponin less than 0.017, C-reactive protein 17.5 * Vital signs have been stable and max temperature has been 100.0 over the past 24 hours. 01/08/20 * Patient's heart rate has been running sinus of bradycardia in the 40s and 50s. Heart rate again dipped down into the 30s overnight however patient was asymp tomatic. I did consult weed burner on-call at [facility] in [place] and he states that no further interventions are needed at this time. However we will continue to monitor pulse oximetry as this may correlate to sleep apnea and patient has not had his CPAP. * Patient is on day 3 of remdesivir and day 3 of dexamethasone. * Patient has been afebrile the past 24 hours. * He is on 3 L of oxygen per nasal cannula. * Labs reveal: D-dimer 0.33, BUN 29, creatinine 1.2, GFR 59, C-reactive protein 9.4 01/09/20 * Patient did have his usually bring CPAP from home last evening. * Patient is on day 4 of remdesivir and dexamethasone. * Continues on 3 L of oxygen per nasal cannula * Blood cultures are showing no growth after 3 days. * Using his incentive spirometer hourly * He is up independently in the room * Labs are improving and essentially are unremarkable. - Plan Plan:: 01/07/20 Plan * Continue remdesivir and dexamethasone * Hold off on further antibiotic treatment at this time. Patient had a severe reaction to penicillin G and broad-spectrum antibiotics do not appear necessary at this time. * Continue following renal function closely * FiO2 to keep SPO2 between 88 and 94%. * Continue home meds including amlodipine, aspirin, and Lyrica * Spirometer and flutter valve * Repeat labs in the a.m. * Continue to monitor vital signs and telemetry * VTE prophylaxis with Lovenox * CODE STATUS: Full code 01/08/20 * Continue remdesivir and dexamethasone. * Continue to monitor renal function. * Respiratory therapy to continue to titrate oxygen. * Spirometry and flutter valve * Lovenox for DVT prophylaxis. * Continuous pulse ox, telemetry * Repeat labs in the a.m. * Obtain CPAP from home for patient. 01/09/20 * Continue remdesivir and dexamethasone * Titrate oxygen * Use incentive spirometer and flutter valve every 1 hour while awake * Continue Lovenox for DVT prophylaxis * Patient is a full code Patient will likely be here greater than 96 hours due to the 5-day treatment course of Covid. 01/10/20 * Patient has completed his 5-day course of remdesivir and is currently on day 8 of 10-day course of dexamethasone. * He is on room air today with oxygen saturations 93% and greater. * He reports feeling well and states he is ready to be discharged home. * CBC is unremarkable, D-dimer is 0.22, BUN is 29, creatinine 1.3, GFR 54, C- reactive protein 5.3. * Will be discharged home. I encouraged him to continue using his incentive spirometer until his follow-up appointment with Dr. Cruz in 1 week. I would like him to take 2 more days of 6 mg of dexamethasone to complete his 10-day course. He has a prescription for this at home. * D-dimer is within normal range so he will not need an anticoagulant on discharge. - Patient Instructions Diet: Usual Diet as Tolerated Activity: As Tolerated Other/Special Instructions: Patient may be discharged to home. Follow-up with Dr. Cruz in 1 week. Continue to use incentive spirometer and flutter valve. Continue to quarantine at home until follow-up with Dr. Cruz. Dexamethasone 6 mg daily tomorrow and Tuesday and then you will have completed a 10-day course. Should you develop increased shortness of breath or your condition should worsen or change, follow-up with your primary care physician or return to the emergency department. - Discharge Plan *PRESCRIPTION DRUG MONITORING PROGRAM REVIEWED*: No *COPY OF PRESCRIPTION DRUG MONITORING REPORT IN PATIENT EDWIGE: No Home Medications: Home Meds Aspirin [Adult Low Dose Aspirin EC] 81 mg PO DAILY 01/05/20 [History] Latanoprost [Xalatan 0.005% Ophth Soln] 1 drop EYEBOTH DAILY 01/05/20 [History] Losartan [Cozaar] 50 mg PO DAILY 01/05/20 [History] Montelukast [Singulair] 10 mg PO DAILY 01/05/20 [History] Pregabalin [Lyrica] 100 mg PO ASDIRECTED 01/05/20 [History] Tamsulosin HCl 0.4 mg PO DAILY 01/05/20 [History] amLODIPine Besylate [Amlodipine Besylate] 10 mg PO DAILY 01/05/20 [History] dexAMETHasone [Dexamethasone] 2 mg PO BEDTIME 01/05/20 [History] dexAMETHasone [Dexamethasone] 4 mg PO DAILY 01/05/20 [History] Oxygen Therapy Mode: Room Air Patient Handouts: COVID-19, Sepsis, Diagnosis, Adult Forms: ED Department Discharge Referrals: Yung Cruz MD [Primary Care Provider] - 01/22/20 2:30 pm - Discharge Summary/Plan Comment DC Time >30 min.: No - General Info Date of Service: 01/10/20 Admission Dx/Problem (Free Text: Admission Diagnosis/Problem Admission Diagnosis/Problem Hypoxia Functional Status: Reports: Pain Controlled, Tolerating Diet, Ambulating, Urinating, Incentive Spirometry - Review of Systems General: Reports: No Symptoms HEENT: Reports: No Symptoms, Glasses Pulmonary: Reports: Cough. Denies: Sputum Cardiovascular: Reports: No Symptoms Gastrointestinal: Reports: No Symptoms Genitourinary: Reports: No Symptoms Musculoskeletal: Reports: No Symptoms Skin: Reports: No Symptoms Neurological: Reports: No Symptoms Psychiatric: Reports: No Symptoms - Patient Data Vitals - Most Recent: Last Vital Signs Temp 98.2 F 01/10/20 07:33 Pulse 54 L 01/10/20 07:33 Resp 18 01/10/20 07:33 BP 122/67 01/10/20 08:31 Pulse Ox 89 L 01/10/20 07:33 Weight - Most Recent: 238 lb I&O - Last 24 hours: Intake & Output 01/09/20 01/10/20 01/10/20 22:59 06:59 14:59 Intake Total 1520 800 Output Total 600 900 Balance 920 -100 Lab Results - Last 24 hrs: Laboratory Results - last 24 hr 01/10/20 01/10/20 01/10/20 Range/Units 04:57 04:57 04:57 WBC 5.37 (4.23-9.07) K/mm3 RBC 5.11 (4.63-6.08) M/mm3 Hgb 15.2 (13.7-17.5) gm/dl Hct 44.9 (40.1-51.0) % MCV 87.9 (79.0-92.2) fl MCH 29.7 (25.7-32.2) pg MCHC 33.9 (32.2-35.5) g/dl RDW Std Deviation 46.1 H (35.1-43.9) fL Plt Count 285 (163-337) K/mm3 MPV 9.7 (9.4-12.3) fl Neut % (Auto) 78.0 H (34.0-67.9) % Lymph % (Auto) 13.8 L (21.8-53.1) % [place] % (Auto) 7.3 (5.3-12.2) % Eos % (Auto) 0 L (0.8-7.0) Baso % (Auto) 0.2 (0.1-1.2) % Neut # (Auto) 4.19 (1.78-5.38) K/mm3 Lymph # (Auto) 0.74 L (1.32-3.57) K/mm3 [place] # (Auto) 0.39 (0.30-0.82) K/mm3 Eos # (Auto) 0.00 L (0.04-0.54) K/mm3 Baso # (Auto) 0.01 (0.01-0.08) K/mm3 Manual Slide Review Normal smear D-Dimer, Quantitative 0.22 (0.19-0.50) mg/L Sodium 139 (136-145) mEq/L Potassium 4.2 (3.5-5.1) mEq/L Chloride 104 (98-107) mEq/L Carbon Dioxide 24 (21-32) mEq/L Anion Gap 15.2 H (5-15) BUN 29 H (7-18) mg/dL Creatinine 1.3 (0.7-1.3) mg/dL Est Cr Clr Drug Dosing 59.35 mL/min Estimated GFR (MDRD) 54 (>60) mL/min BUN/Creatinine Ratio 22.3 H (14-18) Glucose 103 (83-115) mg/dL Calcium 8.5 (8.5-10.1) mg/dL Magnesium 2.3 (1.8-2.4) mg/dl Total Bilirubin 0.6 (0.2-1.0) mg/dL AST 20 (15-37) U/L ALT 24 (16-63) U/L Alkaline Phosphatase 48 (46-116) U/L C-Reactive Protein 5.3 H* (<1.0) mg/dL Total Protein 7.1 (6.4-8.2) g/dl Albumin 3.0 L (3.4-5.0) g/dl Globulin 4.1 gm/dL Albumin/Globulin Ratio 0.7 L (1-2) REX Results - Last 24 hrs: Microbiology 01/05/20 18:50 Aerobic Blood Culture - Preliminary Blood - Venous NO GROWTH AFTER 4 DAYS Anaerobic Blood Culture - Preliminary NO GROWTH AFTER 4 DAYS 01/05/20 18:30 Aerobic Blood Culture - Preliminary Blood - Venous - Lab Draw NO GROWTH AFTER 4 DAYS Anaerobic Blood Culture - Preliminary NO GROWTH AFTER 4 DAYS Med Orders - Current: Current Medications Acetaminophen (Tylenol) 650 mg PO Q4H PRN PRN Reason: Pain (Mild 1-3)/fever Last Admin: 01/06/20 09:13 Dose: 650 mg Documented by: Amlodipine Besylate (Norvasc) 10 mg PO DAILY [facility] Last Admin: 01/10/20 08:31 Dose: 10 mg Documented by: Artificial Tears (Refresh Liquigel 1%) 1 ml EYEBOTH ASDIRECTED PRN PRN Reason: Dry Eyes Last Admin: 01/09/20 16:25 Dose: 1 drop Documented by: Aspirin (Halfprin) 81 mg PO DAILY [facility] Last Admin: 01/10/20 08:31 Dose: 81 mg Documented by: Dexamethasone (Dexamethasone) 6 mg PO DAILY [facility] Stop: 01/12/20 09:01 Last Admin: 01/10/20 08:32 Dose: 6 mg Documented by: Enoxaparin Sodium (Lovenox) 40 mg SUBCUT DAILY [facility] Last Admin: 01/10/20 08:31 Dose: 40 mg Documented by: Latanoprost (Xalatan 0.005% Ophth Soln) 0 ml EYEBOTH DAILY [facility] Last Admin: 01/10/20 08:34 Dose: 1 drop Documented by: Montelukast Sodium (Singulair) 10 mg PO DAILY [facility] Last Admin: 01/10/20 08:31 Dose: 10 mg Documented by: Ondansetron HCl (Zofran) 4 mg IV Q4H PRN PRN Reason: Nausea/Vomiting Pregabalin (Lyrica) 75 mg PO QID [facility] Last Admin: 01/10/20 08:31 Dose: 75 mg Documented by: Pregabalin (Lyrica) 25 mg PO QID [facility] Last Admin: 01/10/20 08:31 Dose: 25 mg Documented by: Sodium Chloride (Saline Flush) 10 ml FLUSH ASDIRECTED PRN PRN Reason: Keep Vein Open Last Admin: 01/05/20 18:22 Dose: 10 ml Documented by: Tamsulosin HCl (Flomax) 0.4 mg PO DAILY [facility] Last Admin: 01/10/20 08:32 Dose: 0.4 mg Documented by: Discontinued Medications Azithromycin (Zithromax) 250 mg PO DAILY [facility] Stop: 01/07/20 09:01 Last Admin: 01/07/20 08:43 Dose: 250 mg Documented by: Remdesivir 200 mg/ Sodium (Chloride) 250 mls @ 250 mls/hr IV ONETIME ONE Stop: 01/05/20 23:59 Last Admin: 01/06/20 00:01 Dose: 250 mls/hr Documented by: Remdesivir 100 mg/ Sodium (Chloride) 100 mls @ 100 mls/hr IV Q24H [facility] Stop: 01/09/20 21:59 Last Admin: 01/09/20 21:33 Dose: 100 mls/hr Documented by: Sodium Chloride (Normal Saline) 250 mls @ 75 mls/hr IV ASDIRECTED [facility] Last Admin: 01/06/20 13:49 Dose: 75 mls/hr Documented by: Magnesium Hydroxide (Milk Of Magnesia) 30 ml PO ONETIME ONE Stop: 01/08/20 08:39 Last Admin: 01/08/20 08:50 Dose: 30 ml Documented by: Pregabalin (Lyrica) 100 mg PO QID [facility] Last Admin: 01/07/20 08:43 Dose: 100 mg Documented by: Pregabalin (Lyrica) 100 mg PO ONETIME ONE Stop: 01/06/20 00:05 Last Admin: 01/06/20 01:14 Dose: 100 mg Documented by: Pregabalin (Lyrica) 25 mg PO QID [facility] - Exam Quality Assessment: Denies: Supplemental Oxygen General: Reports: Alert, Oriented, Cooperative, No Acute Distress HEENT: Reports: Pupils Equal, Pupils Reactive, Mucous Membr. Moist/[place] Neck: Reports: Supple, Trachea Midline. Denies: Lymphadenopathy Lungs: Reports: Normal Respiratory Effort, Crackles (Right posterior middle and lower lobe) Cardiovascular: Reports: Regular Rhythm, No Murmurs, Bradycardia GI/Abdominal Exam: Normal Bowel Sounds, Soft, Non-Tender, No Distention (Male) Exam: Deferred Rectal (Males) Exam: Deferred Back Exam: Reports: Normal Inspection, Full Range of Motion Extremities: Normal Inspection, Normal Range of Motion, Non-Tender, No Pedal Edema, Normal Capillary Refill Skin: Reports: Warm, Dry, Intact Neurological: Reports: No New Focal Deficit Psy/Mental Status: Reports: Alert, Normal Affect, Normal Mood
== END 2020-01-10 11:15 | disposition home or self-care (01) | DRG 177 ==
LOC: JD.ED 16:50 → JD.MS 21:37
PROVIDERS: ADMIT Family Medicine; ATTEND Family Medicine
PROC: 8E0ZXY6 Isolation (ICD-10-PCS; principal; 2020-01-05)
PROC: XW033E5 Introduction of Remdesivir Anti-infective into Peripheral Vein, Percutaneous Approach, New Technology Group 5 (ICD-10-PCS; 2020-01-05)
PROC: XW13325 Transfusion of Convalescent Plasma (Nonautologous) into Peripheral Vein, Percutaneous Approach, New Technology Group 5 (ICD-10-PCS; 2020-01-06)
DX: U07.1 COVID-19 (principal); R09.02 Hypoxemia; J12.89 Other viral pneumonia; Z79.4 Long term (current) use of insulin; Z79.899 Other long term (current) drug therapy; N17.9 Acute kidney failure, unspecified; N18.9 Chronic kidney disease, unspecified; I08.1 Rheumatic disorders of both mitral and tricuspid valves; H91.90 Unspecified hearing loss, unspecified ear; M54.9 Dorsalgia, unspecified; G89.29 Other chronic pain; M19.90 Unspecified osteoarthritis, unspecified site; Z96.659 Presence of unspecified artificial knee joint; Z96.619 Presence of unspecified artificial shoulder joint; Z96.669 Presence of unspecified artificial ankle joint; Z88.0 Allergy status to penicillin; Z87.891 Personal history of nicotine dependence; Z79.82 Long term (current) use of aspirin; Z98.49 Cataract extraction status, unspecified eye
CPT/HCPCS: 36415; 36600; 71045; 80053; 82728; 82803; 83605; 83615; 83735; 83880; 84484; 85007; 85027; 85379; 85610; 85730; 86140; 87040 ×2; 87804 ×2; 93005; 99285; U0002; 36430; 84100; 84443; 85025; 86900; 86901; 93010; 93308; 94667; 94668; 94761; 99283; A9270-GY; J1650; J7050; J8540; P9017